=== PATIENT | female | born 1980 | race Hispanic/Latino ===

== ENCOUNTER 2017-10-19 11:29 | Inpatient (IN) | payer MEDICAID ==
[2017-10-19] MEDS ORDERED: hydrALAZINE 25 MG TAB ONE (11:52)
[2017-10-19] MEDS ORDERED: Magnesium Sulfate 2 GM/NS 0.9% 50 ML BAG ONE (11:52)
[2017-10-19] MEDS ORDERED: hydrALAZINE 20 MG/ML VIAL ONE ×2 (11:53→12:47)
[2017-10-19 12:01] LABS: #Basophils 0.1 thou/uL (0.0-0.2); #Eosinphils 0.1 thou/uL (0.0-0.7); #Lymphocytes 3.3 thou/uL (1.20-3.40); #Monocytes 0.9 thou/uL (0.11-0.59); #Neutrophils 10.5 thou/uL (1.40-6.50); %Eosinophils 0.9 % (0.0-10.0); %Lymphocytes 22.1 % (21.0-51.0); %Monocytes 6.2 % (0.0-10.0); %Neutrophils 69.9 % (42.0-75.0); Hemoglobin 13.3 g/dL (12.0-16.0); Mean Corpuscular Hemoglobin 28.8 pg (27.0-31.0); Mean Corpuscular Volume 84.8 fL (78.0-98.0); Mean Platelet Volume 7.2 fL (7.4-10.4); Platelet Count 299 thou/uL (130-400); RBC Distribution Width 14.3 % (11.5-14.5); Red Blood Cell (RBC) Count 4.63 mill/uL (4.20-5.40)
[2017-10-19 12:13] LABS: INR-International Normal Ratio 0.8; PTT 30.7 SEC (22.9-36.1); Prothrombin Time 11.5 SEC (12.0-14.7)
[2017-10-19 12:19] LABS: ALT (SGPT) 11 U/L (8-55); AST (SGOT) 15 U/L (5-34); Albumin 3.4 g/dL (3.5-5.0); Alkaline Phosphatase 117 U/L (40-150); Anion Gap 13 mmol/L (10-20); BUN (Urea Nitrogen) 9 mg/dL (7.0-18.7); Bilirubin, Total 0.4 mg/dL (0.2-1.2); Calc. Creatinine Clearance 0 mL/min (70-130); Calcium 9.5 mg/dL (7.8-10.44); Carbon Dioxide 21 mmol/L (22-29); Chloride 107 mmol/L (98-107); Estimated GFR-MDRD Greater than 90; Glucose 73 mg/dL (70-105); Magnesium 1.7 mg/dL (1.6-2.6); Protein, Total 7.4 g/dL (6.0-8.3); Sodium 137 mmol/L (136-145)
[2017-10-19] MEDS ORDERED: Magnesium Sulfate 20 gm/500 ml 20 GM/500 ML BAG ONE (12:55)
[2017-10-19] MEDS ORDERED: Ondansetron HCl/PF 4 MG/2 ML Vial IVP PRN (13:09)
[2017-10-19] MEDS ORDERED: NIFEdipine 10 MG CAP ONE (13:09)
[2017-10-19] MEDS ORDERED: Labetalol HCl 100 MG/20 ML VIAL SLOW IVP PRN (13:18)
[2017-10-19] MEDS ORDERED: hydrALAZINE 20 MG/ML VIAL SLOW IVP SCH ×2 (13:30→16:45)
[2017-10-19] MEDS ORDERED: NIFEdipine XL 30 MG TAB PO SCH (13:30)
[2017-10-19] MEDS ORDERED: Magnesium Sulfate 20 gm/500 ml 20 GM/500 ML BAG IVPB SCH (13:30)
[2017-10-19 13:40] VITALS: BMI 38.2
[2017-10-19 14:17] LABS: Amphetamine Not Detected (NotDetected); Barbiturates Screen Not Detected (NotDetected); Benzodiazepine Screen Not Detected (NotDetected); Cocaine Metabolite Screen Not Detected (NotDetected); Medtox Control Line Valid? VALID (VALID); Medtox Reader # READER 4; Methadone Not Detected (NotDetected); Methamphetamine Not Detected (NotDetected); Opiate Screen Not Detected (NotDetected); Oxycodone Screen Not Detected (NotDetected); Phencyclidine (PCP) Not Detected (NotDetected); THC/Cannabinoid Screen Not Detected (NotDetected); Tricyclic Screen Not Detected (NotDetected)
[2017-10-19 14:24] LABS: HBSAg Index 0.19 S/CO (0-0.99); Hep B Surf Ag Non-Reactive S/CO (NonReactive)
[2017-10-19 14:28] LABS: Syphilis Antibody Index 10.78 S/CO (<1.00 Non-Reactive)
--- NOTE | 2017-10-19 14:47 | ULT ---
OBSTETRICAL ULTRASOUND: DATE: 10/19/17. HISTORY: A 36-year-old female undergoing evaluation for size and dates. TECHNIQUE: Multiplanar, baker scale, sonographic imaging of the gravid uterus obtained. FINDINGS: The cervix is partially obscured by shadowing from head. Cervical length is estimated in the 3 cm range, but this may not be fully accurate secondary to technical limitations. Single intrauterin e gestation demonstrates a cephalic presentation and a heart rate of 150 b.p.m. Placenta is lo cated posteriorly with no evidence for previa or abruption. Amniotic fluid index is 18.6 cm. Intracranial anatomy could not be assessed secondary to head location. nose and lips appear unremarkable. The stomach and bladder appear unremarkable. Region of kidneys unremarkable. Evaluation of the spine and 4-chamber heart view subopti mal secondary to body habitus. Three-vessel cord noted. Umbilical cord insertion sit appears normal . BIOMETRY: BPD 6.3 cm, 25 weeks 4 days HC 23.5 cm, 25 weeks 4 days AC 20.5 cm, 25 weeks 1 day FL 4.3 cm, 24 weeks 2 days Average age based on ultrasound is 25 weeks 1 day with an estimated date of delivery on 01/31/18. Est imated weight is 741 gm +/- 110 gm (1 pound 10 ounces +/- 4 ounces). Of note, this is differen t than the patient's clinical age of 26 weeks 6 days. This suggests an estimated weight of 1 p ercentile, but that may be secondary to inaccurate dates. IMPRESSION: Intrauterine gestation as described above. anatomy could not be completely assessed secondary to position and maternal body habitus. Please see above discussion regarding estimated w eight and gestational age. POS: [facility]
[2017-10-19 15:59] LABS: Creatinine, Urine 29.28 mg/dL (47-110); Protein, Urine Random Quant Less than 10 mg/dL
[2017-10-19 18:25] LABS: Syphilis Antibody REACTIVE (Nonreactive)
[2017-10-19] MEDS ORDERED: Acetaminophen 500 MG TAB PO PRN (19:15)
[2017-10-19] MEDS ORDERED: Acetaminophen 500 MG TAB PO SCH (19:15)
[2017-10-19] MEDS ORDERED: Milk Of Magnesia 30 ML UDCUP PO PRN (19:56)
[2017-10-19] MEDS ORDERED: Magnesium Citrate 300 ML BOT PO SCH (20:15)
--- NOTE | 2017-10-19 21:06 | PRG ---
DATE OF SERVICE: 10/19/2017 EVENT NOTE Labs have been reviewed. New labs back are syphilis and RPR titer, which is reactive with a titer of 1 in 4. I spoke with the patient. The patient reports she has been treated several times now. Loi henriquez treated was 06/2016 at [facility] in [place], [place]. She is unaware of what he r titers were at that time. The number for the clinic is [phone]. Tomorrow, we will attempt to retrieve that information to determine whether she needs treatment or not.
--- NOTE | 2017-10-19 23:07 | HP ---
DATE OF ADMISSION: 10/19/2017 OB ADMISSION INPATIENT No care. HISTORY OF PRESENT ILLNESS: Patient is a 36-year-old G10, P8 female with an intrauterine o n arrival of unknown dates, who was transferred by the [facility] ER for elevated blood pr essures. Patient reports in our conversation that she has a history of chronic hypertension and has been off medications, has not been getting care and was told last January before her pregnan cy that she had high blood pressure. Patient reports that she was seen in the emergency room in [facility], where she was given some blood pressure medicine and instructed to follow up with an OB provider, but had not. Patient presented to the emergency room initially because she was having uterine contra ctions about every 3 hours and was concerned about what that might mean. She denies headache, chest pain, shortness of breath, nausea, vomiting, diarrhea, constipation, any new rashes, vaginal bleeding , leakage of fluid, urinary urgency or frequency, any back pain. PAST MEDICAL HISTORY: Again, chronic hypertension. PAST SURGICAL HISTORY: She has had six previous C-sections. SOCIAL HISTORY: Smokes daily at home. Tobacco: Denies any drug or alcohol use. ALLERGIES: No known drug allergies. MEDICATIONS: None. OB LABORATORY DATA: She has an emergency room visit dated 07/12/2017, which showed a hemoglobin of 1 1.9, hematocrit 36.4, and platelets of 326,000 at that time with negative protein in her urine. REVIEW OF SYSTEMS: Per HPI. PHYSICAL EXAMINATION: VITAL SIGNS: On arrival, patient had blood pressures in the 180s and 200s after being given 10 mg of hydralazine and loaded with 4-gram bolus of magnesium at the outside ER physicians' location. After another 10 mg of hydralazine, blood pressures have come down into the mild range. Respiratory rate has been 18-20, heart rate in the 80s, temperature 98.5. GENERAL: She appears to be in no acute distress. She is alert and oriented, cooperative, and pleasa nt to interact with. HEAD: Normocephalic, atraumatic. LUNGS: Clear to auscultation bilaterally. HEART: Regular rate and rhythm. ABDOMEN: Soft and gravid. She has a fundal height of 30 cm, nontender. EXTREMITIES: Nontender, nonedematous. GENITOURINARY: Has been deferred. heart tracing shows a fetus in the 130s with moderate long- term variability. No contractions seen on the monitor. LABORATORY DATA: Lab work shows a white count of 15, hemoglobin 13.3, hematocrit 39.2, platelets of 299,000. LFTs: AST of 15, ALT 11, LDH 186. Urine protein less than 10. Creatinine at 29 making ra shabbir at least less than 0.3. Urine drug screen is negative. Hepatitis B surface antigen nonreactive. Blood type is A positive, antibody screen is negative. She has a syphilis and RPR titer pending. Of note, patient was treated for syphilis back in June. ASSESSMENT AND PLAN: Patient is a 36-year-old female G10, P8 with an intrauterine about 26 weeks' gestation, who presented for very infrequent sporadic abdominal pains. During her stay, iesha ent was noted to have severe range blood pressures likely secondary to exacerbation of chronic hypert ension. None of her workup suggestive of preeclampsia at this time. Patient was initially bolused w ith magnesium and placed on magnesium until all of her labs and we were able to be ordered, reviewed, and assessed probably taking off her magnesium now. She has had 2 doses of hydralazine 10 mg and wa s placed on 30 mg of Procardia-XL, hopefully to help long-term control. Patient will likely need add itional IV medications until her blood pressure is under control with p.o. regimen. Patient just rec ently moved to [place] and will attempt to get her seen at the [facility] there with Dr. Ambrose and Renny. Of note, the records that were able to be obtained from the [facility] shows an int rauterine at 11 weeks and 6 days with a due date of 01/25, so that day is close to her orig inal due date based on her period at 01/19, so we will finalize her due date of 01/19 making her 26 we eks and 6 days today.
--- NOTE | 2017-10-20 07:39 | PRG ---
DATE OF SERVICE: 10/20/2017 HISTORY OF PRESENT ILLNESS: Ms. Hill is on hospital day 2, admitted for chronic hypertension, exa cerbation of blood pressure with an intrauterine at 25 weeks and no care. The pat ient after getting her blood pressures under control with IV hydralazine through the day yesterday e patient was placed on Procardia 30 mg p.o. and sent to the floor for blood pressure monitoring. He r blood pressures have remained in the normal range, primarily in the 130s 140s VITAL SIGNS: Most recent blood pressure while sleeping was 114/57, temperature 98.5, pulse of 88, re spiratory rate of 20. GENERAL: The patient reports she feels much better today. Denies headache and is tolerating p.o. an d voiding. ASSESSMENT AND PLAN: The patient will be observed through the day for medication adjustments as need ed. If blood pressures remain in the mild range she may be able to be discharged this evening or kamryn orr morning. We have attempted to make contact with Dr. Lawson's office and I have encouraged that she follow up with them for outpatient management.
[2017-10-20] MEDS ORDERED: NIFEdipine XL 30 MG TAB PO SCH (09:00)
[2017-10-20 11:47] VITALS: BP 136/67; TEMP 98.1
--- NOTE | 2017-10-20 13:08 | PDOC.EVN ---
Event Note - Event Note Event Note: 10/20/2017, [facility] Dx: 26-27 weeks, chronic hypertension, treated syphilis S: no new complaints. O: Bp is well-controlled (120s/70s), afebrile. CMP, CBC normal on admit 24 hour urine just completed physical exam: no vaginal bleeding, no leakage of fluid A: 26 weeks and 6 days here for BP control. now on procardia 30 mg xl q day. Doing well. P: 1) await 24 hour urine. spot check yesterday was negative. 2) history of treated syphilis with low-level seropositive at 1:4 3) no evidence of labor
[2017-10-20 13:10] LABS: Collection Duration 24 hrs
[2017-10-20 13:11] LABS: Urine Total Volume 1350 mL (600-1600)
--- NOTE | 2017-10-20 13:24 | PDOC.EVN ---
Event Note - Event Note Event Note: Discharge Note Admit: 10/19/17 Discharge: 10/20/17 Principle DX: CHTN at 26 weeks Secondary DX: Grand multipara Prior CS X3 Discharge meds: Procardia 30mg XL po QD 24 hour urine collected...results pending F/U: Dr kaur for results and BP check DISCHARGE SUMMARY COMPLETED IN FILE
[2017-10-20 13:51] LABS: Protein, Urine Less than 10 mg/dL (1-14)
== END 2017-10-20 13:38 | disposition home or self-care (01) | DRG 781 ==
LOC: SCSER 11:29 → L&D 12:38 → 3SW 21:08
PROVIDERS: ADMIT Obstetrics & Gynecology; ATTEND Obstetrics & Gynecology
DX: O10.012 Pre-existing essential hypertension complicating pregnancy, second trimester (principal); Z3A.25 25 weeks gestation of pregnancy
CPT/HCPCS: 51702; 76805; 80053; 80306; 82570; 83615; 83735; 84156; 85025; 85610; 85730; 86593; 86762; 86780; 86850; 86900; 86901; 87340; 96365; 96375; J0360; J3475

== ENCOUNTER 2017-11-10 12:11 | Inpatient (IN) | payer MEDICAID ==
[2017-11-10 12:58] VITALS: BMI 40.2
[2017-11-10] MEDS ORDERED: Promethazine HCl 25 MG/ML VIAL IM PRN (13:14)
[2017-11-10] MEDS ORDERED: Zolpidem Tartrate 5 MG TAB PO PRN (13:14)
[2017-11-10] MEDS ORDERED: Calcium Gluc 4.6 MEQ/10 ML (100 MG/ML) SLOW IVP PRN (13:29)
[2017-11-10] MEDS ORDERED: Magnesium Sulfate 20 GM/WATER 500 ML BAG IVPB SCH (13:30)
--- NOTE | 2017-11-10 13:38 | PDOC.LDHP ---
Labor and Delivery H&P Chief complaint: other HPI: 37 yo LAF presents c/o cramping, denies bleeding or LOF, CARRERO, visual changes or RUQ pain. Current gestational age (weeks): 30 Due date: 01/19/18 Dating criteria: last menstrual period, first trimester ultrasound Grav: 10 Para: 8 OB History Details: PNC x 1 visit in [place]. Seen here with elevated BP last month, stabilized and sent home on po Procardia. Has a h/o multiple C/S. Current complications: hypertension Past Medical History: h/o HTN Current medications: pre-lo vitamins, other (Procardia 30 mg QD.) Previous surgical history: other (h/o multiple C/S, reports x 6.) Allergies/Adverse Reactions: Allergies Allergy/AdvReac Type Severity Reaction Status Date / Time No Known Drug Allergies Allergy Verified 11/10/17 12:49 Social history: tobacco use - Physical Exam Abnormal vital signs: BP on admit= 170/100 General: NAD Lungs: nonlabored breathing Abdomen: gravid Extremeties: trace edema FHT: variability present Dudley contractions every: no significant UCs seen. - OB Labs Blood type: A RH: positive Antibody Screen: negative GBS: unknown Rubella: immune - Assessment 30 week IUP with limited PNC H/o 6 prev. C/S Chronic HTN r/o superimposed PIH - Plan Plan: admit to L&D (Start MgSO4 and watch BP carefully BP control as needed)
[2017-11-10] MEDS: Lactated Ringer's 1,000 ML IV SCH ×2 (13:44→22:15)
[2017-11-10] MEDS: Labetalol HCl 100 MG/20 ML VIAL ONE ×3 (13:56→18:18)
[2017-11-10 14:00] LABS: Bilirubin Negative (Negative); Blood, Urine Negative (Negative); Clarity CLEAR (Clear); Glucose, Urine (Dipstick) Negative (Negative); Leukocyte Moderate (Negative); Nitrite Negative (Negative); Protein, Urine (Dipstick) 30 mg/dL (Neg-Trace); Specific Gravity, Urine 1.025 (1.002-1.036)
[2017-11-10 14:03] LABS: Amphetamine Not Detected (NotDetected); Barbiturates Screen Not Detected (NotDetected); Benzodiazepine Screen Not Detected (NotDetected); Cocaine Metabolite Screen Not Detected (NotDetected); Medtox Control Line Valid? VALID (VALID); Medtox Reader # READER 1; Methadone Not Detected (NotDetected); Methamphetamine Not Detected (NotDetected); Opiate Screen Not Detected (NotDetected); Oxycodone Screen Not Detected (NotDetected); Phencyclidine (PCP) Not Detected (NotDetected); THC/Cannabinoid Screen Not Detected (NotDetected); Tricyclic Screen Not Detected (NotDetected)
[2017-11-10 14:05] LABS: Bacteria/HPF None Seen HPF (None Seen); Hyaline Casts/LPF 4-6 HYALINE CAST LPF (0-3 Hyaline); Pathc Cast-AUWi Flag 1.01 (0-2.49); RBC/HPF 0-3 HPF (0-3)
[2017-11-10 14:05] LABS: Mean Corpuscular HGB CONC 35.4 g/dL (32.0-36.0); Mean Corpuscular Hemoglobin 31.1 pg (27.0-31.0); Mean Corpuscular Volume 87.9 fL (78.0-98.0); Mean Platelet Volume 7.3 fL (7.4-10.4); Platelet Count 242 thou/uL (130-400); RBC Distribution Width 14.1 % (11.5-14.5); Red Blood Cell (RBC) Count 4.17 mill/uL (4.20-5.40); White Blood Cell (WBC) Count 11.7 thou/uL (4.8-10.8)
[2017-11-10] MEDS: Magnesium Sulfate 20 gm/500 ml 20 GM/500 ML BAG IVPB SCH ×2 (14:06→22:15)
--- NOTE | 2017-11-10 14:09 | PDOC.EVN ---
Event Note - Event Note Event Note: Mg infusing. BP= 200/100 on back. USG shows breech infant, biometry c/w 28.5 weeks, wt= 1191 gms., ANJUM= 7.1, cervix length= 2.3. Labs pending. Labetalol IV ordered for BP control. Will begin steroids for FLM.
[2017-11-10 14:26] LABS: Transitional Epithelial NONE SEEN HPF (0-3)
[2017-11-10 14:27] LABS: Crystals/HPF None Seen HPF (Negative); Oval Fat Bodies/HPF None Seen HPF (None Seen); Renal Epithelial None Seen HPF (0-3); Trichomonas/HPF Rare HPF (None Seen)
[2017-11-10 14:32] LABS: ALT (SGPT) 8 U/L (8-55); AST (SGOT) 12 U/L (5-34); Albumin 3.5 g/dL (3.5-5.0); Alkaline Phosphatase 130 U/L (40-150); Anion Gap 11 mmol/L (10-20); BUN (Urea Nitrogen) 14 mg/dL (7.0-18.7); Bilirubin, Total 0.4 mg/dL (0.2-1.2); Calc. Creatinine Clearance 219 mL/min (70-130); Carbon Dioxide 19 mmol/L (22-29); Chloride 109 mmol/L (98-107); Estimated GFR-MDRD Greater than 90; Globulin 3.1 g/dL (2.4-3.5); Glucose 73 mg/dL (70-105); Potassium 4.4 mmol/L (3.5-5.1); Protein, Total 6.6 g/dL (6.0-8.3); Sodium 135 mmol/L (136-145)
[2017-11-10] MEDS: Betamet Acet/Betamet Na Ph 30 MG/5 ML VIAL IM SCH (14:34)
[2017-11-10 14:45] LABS: HBSAg Index 0.15 S/CO (0-0.99); HIV (1/2) Antibody/Antigen Non-Reactive (NonReactive); HIV 1/2 INDEX 0.13 S/CO (<1.00); Hep B Surf Ag Non-Reactive S/CO (NonReactive)
[2017-11-10 14:56] LABS: Syphilis Antibody Index 10.31 S/CO (<1.00 Non-Reactive)
[2017-11-10] MEDS ORDERED: Labetalol 100 MG/20 ML MDV SLOW IVP SCH (15:15)
[2017-11-10] MEDS ORDERED: NIFEdipine XL 30 MG TAB PO SCH (15:15)
--- NOTE | 2017-11-10 15:16 | PDOC.EVN ---
Event Note - Event Note Event Note: Labs return: WBC= 11.7, H/H= 13/36, plts= 242K. UA; trace protein, negative blood, lekocytes, bacteria none seen, trichamonas seen. Chem: Cr= .56, AST/ALT= 12/8. A/P; 30 week IUP, chronic HTN, no evidence of superimposed PIH at this time. Will give steroids x2, begin Flagyl PO and restart Procardia XL. Will bolus with labetalol as needed.
--- NOTE | 2017-11-10 15:43 | ULT ---
OB ULTRASOUND: COMPARISON: 10/19/17. HISTORY: Preeclampsia. TECHNIQUE: Limited imaging of a gravid uterus is performed. FINDINGS: Single intrauterine gestation with breech presentation. Limited evaluation of the cervix. BIOMETRY: BPD 6.96 cm, 28 weeks 0 days Head circumference 26.96 cm, 29 weeks 3 days Abdominal circumference 23.86 cm, 28 weeks 1 day Femur length 5.26 cm, 28 weeks 0 days Average age by sonography is 28 weeks 3 days. Estimated weight is 1,191 gm +/- 176 gm. Amniotic fluid index is 7.1 cm. There are heart tones with a rate of 132 b.p.m. Posterior placenta is noted. The current stud y does not allow for the evaluation of previa. IMPRESSION: 1. Single intrauterine gestation. There are heart tones with a rate of 132 b.p.m. 2. Breech presentation. 3. Suboptimal evaluation of the cervix. POS: [facility]
[2017-11-10] MEDS: metroNIDAZOLE 250 MG TAB PO SCH ×2 (16:18→21:14)
[2017-11-10] MEDS ORDERED: Labetalol HCl 100 MG/20 ML VIAL SLOW IVP PRN (18:32)
[2017-11-10] MEDS ORDERED: Labetalol HCl 100 MG/20 ML VIAL SLOW IVP SCH (18:45)
[2017-11-10 21:53] LABS: Syphilis Antibody REACTIVE (Nonreactive)
[2017-11-11] MEDS: Acetaminophen 500 MG TAB PO PRN (01:01)
[2017-11-11] MEDS ORDERED: NIFEdipine XL 60 MG TAB PO SCH (06:00)
[2017-11-11] MEDS: Lactated Ringer's 1,000 ML IV SCH ×3 (06:13→21:14)
--- NOTE | 2017-11-11 06:15 | PDOC.EVN ---
Event Note - Event Note Event Note: Denies CARRERO or blurry vision. BP= 143/78 now. Did receive another dose of Labetalol IV at shift change last night. Will DC Mg now and start Procardia XL 60 mg QD. 2nd dose of steroids later today. 24 hr urine for TP in progress.
[2017-11-11] MEDS: metroNIDAZOLE 250 MG TAB PO SCH ×3 (09:15→21:14)
[2017-11-11 13:45] LABS: Collection Duration 24 hrs; Urine Total Volume 2800 mL (600-1600)
[2017-11-11 14:07] LABS: Protein - 24 Hr 308 mg/24 hr (Less than 300); Protein, Urine 11 mg/dL (1-14)
[2017-11-11] MEDS: Betamet Acet/Betamet Na Ph 30 MG/5 ML VIAL IM SCH (15:30)
[2017-11-11] MEDS: Mag-Al 1200 mg/1200 mg/30 ML UDCUP PO PRN (23:34)
[2017-11-12] MEDS ORDERED: Sodium Chloride 0.9% 10 ML ONE (02:57)
[2017-11-12] MEDS: Acetaminophen 500 MG TAB PO PRN (02:58)
[2017-11-12] MEDS: Ondansetron HCl/PF 4 MG/2 ML Vial IVP PRN ×2 (02:59→22:02)
--- NOTE | 2017-11-12 07:48 | PDOC.EVN ---
Event Note - Event Note Event Note: S: Patient doing well this morning. Had heartburn last night that improved with Maalox. Denies VB, LOF, ctx, headache, vision changes, or RUQ pain. O: BPs 140-150s/70s, VSS Gen - awake, alert, NAD Abd - obese, gravid, soft NTTP A/P: 37 y/o at 30w2d with CHTN, now improved with Nifedipine XL 60mg daily. 24 hour urine with 308mg protein but unsure of baseline, as patient has not received care. Now s/p celestone x 2. Continue current management with NST BID.
[2017-11-12] MEDS: NIFEdipine XL 60 MG TAB PO SCH (09:51)
[2017-11-12] MEDS: metroNIDAZOLE 250 MG TAB PO SCH ×3 (10:19→22:00)
[2017-11-12] MEDS: Mag-Al 1200 mg/1200 mg/30 ML UDCUP PO PRN (15:42)
--- NOTE | 2017-11-13 07:23 | PRG ---
DATE OF SERVICE: 11/13/2017. SUBJECTIVE: This is hospital day #3. She is sleepy, but has no complaints this morning. She denies headache or blurry vision. OBJECTIVE: VITAL SIGNS: Last blood pressure 135/64, pulse 74, temperature 98.1, respirations 18. ABDOMEN: Soft, nontender and gravid. GENITOURINARY: There is no vaginal bleeding. ASSESSMENT AND PLAN: 1. A 30 and 3/7 week intrauterine . 2. Labile chronic hypertension, now well controlled on Procardia 60 mg XL every day. A 24-hour urin e is in progress. It will be completed later this morning. Should this be acceptable, consideration of discharge would be made.
[2017-11-13] MEDS: NIFEdipine XL 60 MG TAB PO SCH (12:11)
[2017-11-13] MEDS: metroNIDAZOLE 250 MG TAB PO SCH ×3 (12:12→23:05)
[2017-11-13 13:06] LABS: Collection Duration 24 hrs; Urine Total Volume 3975 mL (600-1600)
[2017-11-13 13:27] LABS: Protein, Urine Less than 10 mg/dL (1-14)
--- NOTE | 2017-11-14 07:07 | PRG ---
DATE OF SERVICE: 11/14/2017 TIME OF SERVICE: 0645 The patient is resting comfortably. She reports an active fetus. She denies headache. Blood pressures since yesterday have been 137 to 143 systolic and 64 to 72 diastolic. The last high blood pressure was at 1400 on the 16th at 167/81. Physical exam is unchanged with 1+ DTRs. No significant edema, active fetus and FHTs 130s to 140s. LABORATORY: 24-hour urine revealed minimal proteinuria. Of note, the patient has a RPR titer of 1:4 . Research into previous admission and previous treatment reveals that the patient has a history of appropriately treated syphilis and is presumed serofast without current infection. IMPRESSION: A 37-year-old 10, para 8 at 30 weeks gestation with limited antepartum care. Th e patient apparently has gestational hypertension/chronic hypertension, without evidence of preeclamp raul. Blood pressures are under improving control on Procardia-XL 60 mg p.o. every day. PLAN: We will continue Procardia and observe blood pressures until later today. If blood pressures remained in the improved category we will discharge the patient home. The patient has an appointment set up for followup at the Clinic and understands the importance of keeping this appointmen t and having good care. ER precautions given.
[2017-11-14] MEDS: Mag-Al 1200 mg/1200 mg/30 ML UDCUP PO PRN ×2 (12:29→20:14)
[2017-11-14] MEDS: metroNIDAZOLE 250 MG TAB PO SCH ×3 (12:30→20:19)
[2017-11-14] MEDS: NIFEdipine XL 60 MG TAB PO SCH (12:30)
[2017-11-14] MEDS: Labetalol 100 MG TAB PO SCH (20:19)
--- NOTE | 2017-11-14 20:45 | PRG ---
DATE OF SERVICE: 11/14/2017 The patient is a 37-year-old female admitted on 11/10/2017 for uncontrolled chronic hypertension vers us gestational hypertension. She most recently had a medication adjustment to 60 mg of Procardia XL daily. The patient was scheduled to go home today, hospital day 5; however, the patient has been hav ing severe range blood pressures again despite being on the new medication dose for more than 24 hour s. I have discussed these findings with Ms. Hill and also discussed the importance of getting her blood pressures under moderate control. I will be adding labetalol 200 mg twice a day to her curren t regimen to see if this will bring her pressures into the mild range. The patient has expressed und erstanding and will remain admitted.
--- NOTE | 2017-11-15 08:01 | PRG ---
DATE OF SERVICE: 11/15/2017 HISTORY OF PRESENT ILLNESS: The patient is a 37-year-old female with an intrauterine at 30 weeks who was admitted 6 days ago for exacerbation of chronic hypertension. Evaluation has been neg ative up to now for superimposed preeclampsia. The patient was most recently placed on Procardia-XL 60 mg with anticipation of discharge home yesterday; however, the patient continued to have severe ra nge blood pressures and labetalol 200 mg twice a day has been since added. Blood pressures since the n have remained in the normal to mild range. Blood pressure this morning was 142/86, temperature is 98.2, pulse is 74, respiratory rate of 20. The patient denies any headaches, any shortness of breath or other concerns. The patient appears to be in no acute distress. She is alert and oriented, cooperative and pleasant to interact with. ASSESSMENT AND PLAN: The patient is a 37-year-old female with an exacerbation of chronic hypertensio n. We have continued to adjust her medications during this hospitalization for control. The patient is now on Procardia-XL 60 mg a day and labetalol 200 mg twice a day. We will continue monitoring th rough the day. If her blood pressures continue to stay in the normal to mild range the patient can b e discharged this evening.
[2017-11-15] MEDS: Labetalol 100 MG TAB PO SCH ×2 (08:10→22:27)
[2017-11-15] MEDS: metroNIDAZOLE 250 MG TAB PO SCH ×3 (08:11→21:51)
[2017-11-15 09:05] LABS: Hemoglobin 12.7 g/dL (12.0-16.0); Mean Corpuscular HGB CONC 34.7 g/dL (32.0-36.0); Mean Corpuscular Volume 89.1 fL (78.0-98.0); Mean Platelet Volume 6.8 fL (7.4-10.4); Platelet Count 258 thou/uL (130-400); Red Blood Cell (RBC) Count 4.11 mill/uL (4.20-5.40); White Blood Cell (WBC) Count 15.6 thou/uL (4.8-10.8)
[2017-11-15 09:19] LABS: Band 4 % (5-11); Lymphocytes 32 % (21-51); MDiff Complete? YES; Monocytes 3 % (0-10); Neutrophil 61 % (42-75); PLT Morphology Comment Appears Adequate; RBC Morphology Normal
[2017-11-15 09:28] LABS: ALT (SGPT) 12 U/L (8-55); AST (SGOT) 12 U/L (5-34); Albumin 3.2 g/dL (3.5-5.0); Alkaline Phosphatase 106 U/L (40-150); Anion Gap 12 mmol/L (10-20); BUN (Urea Nitrogen) 13 mg/dL (7.0-18.7); Bilirubin, Total 0.5 mg/dL (0.2-1.2); Calc. Creatinine Clearance 215 mL/min (70-130); Calcium 8.6 mg/dL (7.8-10.44); Carbon Dioxide 21 mmol/L (22-29); Chloride 106 mmol/L (98-107); Estimated GFR-MDRD Greater than 90; Globulin 3.1 g/dL (2.4-3.5); Glucose 100 mg/dL (70-105); Potassium 3.8 mmol/L (3.5-5.1); Protein, Total 6.3 g/dL (6.0-8.3); Sodium 135 mmol/L (136-145)
--- NOTE | 2017-11-15 09:28 | PRG ---
DATE OF SERVICE: 11/15/2017 LOCATION: [address] ANTEPARTUM PROGRESS NOTE Hospital day #6 (patient admitted 11/10/2017). In brief, this patient has a full hand written progress note in the physical chart so please see that scanned copy. This dictation is secondary and ancillary. In brief, I was called at approximately 8:30 this morning for the patient's blood pressure which was 170/82. There were no signs or symptoms of labor, and the patient was without symptoms of headache, visual changes or right upper quadrant pain In brief, this is a patient with chronic hypertension who was on clonidine before and has been admitted now (originally admitted by Dr. Dill) for blood pressure medical management, control. I reviewed the medical record with Dr. Melvin this morning and with the patient at bedside. The patient has had prior x3. The patient is currently on dual medication regimen which is labetalol 200 mg p.o. b.i.d. and Procardia-XL 60 mg every day. The labetalol was started last night by Dr. Melvin at around 2100 or so. The patient also had steroids given earlier this admission and also had an ultrasound which showed no evidence of growth restriction. The baby's presentation at that time which was early on in the admission was breech. I have reviewed the patient's history and seen the patient at bedside this morning. Marci, the patient's nurse, also was in on our medical team meeting this morning with the patient. We reviewed the desire for continued in utero development if possible until at least 32 weeks. We discussed that until her blood pressures are in the moderate range, we will continue in-house observation and possible blood pressure medication adjustment. As her labetalol was just started yesterday we will see what the blood pressures are on a full 24 hours of this medication. I have ordered a stat CMP, CBC, and urine protein to creatinine ratio to see if there is any deterioration in her labs which would prompt delivery. The patient's questions were answered and all details given. Time at bedside was 20 minutes with myself and Marci, answering the patient's questions. The patient agrees with the plan and is thankful for care. LOKI
[2017-11-15 10:05] LABS: Uric Acid 4.5 mg/dL (2.6-6.0)
[2017-11-15] MEDS: NIFEdipine XL 60 MG TAB PO SCH (10:05)
--- NOTE | 2017-11-15 10:47 | PDOC.EVN ---
Event Note - Event Note Event Note: 11/15/17 Follow up: @1050 Lab check: CMP ok CBC with WBC at 15 but s/p steroids. PLTS are normal. U protein/CR ratio: 0.36 BPs better now. Ordered BPP this AM.
--- NOTE | 2017-11-15 11:55 | PDOC.EVN ---
Event Note - Event Note Event Note: @1155: Verbal BPP report: 12/06 with ANJUM 9 Normal.
--- NOTE | 2017-11-15 12:34 | ULT ---
BIOPHYSICAL PROFILE: HISTORY: induced hypertension. TECHNIQUE: Multiple longitudinal and transverse images of an intrauterine are obtained using a Multi-H ertz curvilinear transducer. Real-time, color-flow, and spectral wave-form Doppler analysis demonstr ates a viable intrauterine , with the fetus in a breech presentation. The placenta is towar d the maternal left and grade 2. Amniotic fluid index measures 9.2 cm. BIOPHYSICAL PROFILE: TONE: 2 BREATHIN MOVEMENT: 2 AMNIOTIC FLUID VOLUME: 2 COMPOSITE: 8/8 IMPRESSION: Biophysical profile measures 8/8. POS: [facility]
[2017-11-15] MEDS: Mag-Al 1200 mg/1200 mg/30 ML UDCUP PO PRN (22:29)
[2017-11-16 04:35] VITALS: TEMP 98.4
--- NOTE | 2017-11-16 07:46 | PDOC.EVN ---
Event Note - Event Note Event Note: S: Doing well this morning, no complaints. No PIH sx. +FM O: BPs normal to mild range since 0810 on 11/15 Gen -AAO, NAD Abd - gravid, obese, NTTP A/P: 37 y/o at 30w5d with 1. CHTN with superimposed preeclampsia - BPs improved on Nifedipine XL 60mg and Labetalol 200mg BID. Continue to monitor this morning with possible d/c later today if BPs stay controlled on meds. Will need to follow up outpatient early next week. 2. Recent labs wnl 3. wellbeing - BPP yesterday 12/06 4. Prior LTCS x 3 - repeat planned.
[2017-11-16] MEDS: Labetalol 100 MG TAB PO SCH (07:54)
[2017-11-16] MEDS: NIFEdipine XL 60 MG TAB PO SCH (08:51)
[2017-11-16] MEDS: metroNIDAZOLE 250 MG TAB PO SCH ×2 (11:25→15:27)
[2017-11-16 15:29] VITALS: BP 135/83
--- NOTE | 2017-11-17 00:18 | DIS ---
DATE OF ADMISSION: 11/10/2017 DATE OF DISCHARGE: 11/16/2017 ADMITTING DIAGNOSES: 1. No care. 2. Chronic hypertension, uncontrolled. 3. Obesity. 4. Prior x3. 5. Grand multiparity. 6. Intrauterine at 30 weeks. DISCHARGE DIAGNOSES: 1. No care. 2. Chronic hypertension, controlled. 3. Obesity. 4. Prior x3. 5. Grand multiparity. 6. Intrauterine at 30 weeks. PROCEDURE: Ultrasound. CONSULTATIONS: None. HOSPITAL COURSE: Patient is a 37-year-old female with an intrauterine at 30 weeks' gestati on who presented to Labor and Delivery with uncontrolled hypertension. Patient was seen approximatel y 1 month previous here in the hospital but has not established care in our community yet. During her stay, there has been some difficulty in getting her blood pressures under control, but ult imately we have increased her Procardia to 60 mg of Procardia-XL daily plus 200 mg of labetalol twice a day, that seems to be doing a much better job. A pH workup is negative during this hospitalizatio n and fetus is measuring 28 weeks and 3 days. Date of admission which was about a week off. During her hospitalization, the fetus has had 8/8 BPP and reactive NSTs. On date of discharge, the patient' s most recent blood pressure is 135/83, pulse is 74, respiratory rate of 20. In the last 24 hours, h er pressures have been in the 130s to 140s/70s. Patient denies any headaches, chest pain, shortness of breath or any other labor symptoms. Patient is being discharged to home. She has established an initial OB visit with the Clinic on Monday to whom we will be sending our labs and imaging a nd notes. Patient has been given preeclamptic precautions and she is being discharged to home with l abetalol 200 mg to be taken twice a day, Procardia 60 mg to be taken daily and Flagyl 250 mg to be ta anusha 3 times a day for bacterial vaginosis.
== END 2017-11-16 16:44 | disposition home or self-care (01) | DRG 781 ==
LOC: L&D/OP 12:11 → L&D 13:33 → 3SE 11-11 22:14
PROVIDERS: ADMIT Obstetrics & Gynecology; ATTEND Obstetrics & Gynecology
DX: O11.3 Pre-existing hypertension with pre-eclampsia, third trimester (principal); O23.593 Infection of other part of genital tract in pregnancy, third trimester; O99.213 Obesity complicating pregnancy, third trimester; E66.9 Obesity, unspecified; N76.0 Acute vaginitis; O32.1XX0 Maternal care for breech presentation, not applicable or unspecified; O09.33 Supervision of pregnancy with insufficient antenatal care, third trimester; O34.219 Maternal care for unspecified type scar from previous cesarean delivery; B96.89 Other specified bacterial agents as the cause of diseases classified elsewhere; Z3A.30 30 weeks gestation of pregnancy
CPT/HCPCS: 36415; 51701; 51702; 59025; 76805; 76819; 80053; 80306; 81001; 82570; 83615; 84156; 84550; 85025; 85027; 86593; 86780; 86850; 86900; 86901; 87340; 87389; 99285; A4216; J0702; J2405; J3475

== ENCOUNTER 2017-11-20 15:41 | Inpatient (IN) | payer MEDICAID ==
[2017-11-20 16:17] VITALS: BMI 40.8
[2017-11-20] MEDS ORDERED: Labetalol 100 MG TAB PO SCH ×4 (17:15→21:00)
--- NOTE | 2017-11-20 17:23 | PDOC.LDHP ---
Labor and Delivery H&P Chief complaint: other (high blood pressure) HPI: 37yo at 31.3 by reported 11w US from outside hospital presents to L&D for high blood pressure. Patient has a PMH of chronic HTN and was discharged from the hospital one week ago for increased blood pressure and proteinuria. She has been taking meds given to her at discharge which include Labetalol 200 mg BID and Procardia 60 mg XR daily. She reports compliance with regimen and home pressures around 135/70 since . Today went she went to her doctors appointment her BP measured with systolics in 170s. Pt. denies CARRERO, SOB, abdominal pain, vision changes. Endorses mild ,intermittent lower extremity edema throughout her which is not any worse today. Also endorses movement but denies fluid loss, VB. Current gestational age (weeks): 31 (31.3) Dating criteria: last menstrual period, other (reported 11w U/S from [facility] in [facility] Grav: 10 Para: 8 ([id number]) OB History Details: 1. Uncontrolled chronic hypertension with two known hospital admissions for blood pressure control 2. History of Csection x3 3. History of syphilis, s/p treatment 4. Grand multiparity 5. AMA Current complications: hypertension, other (Uncontrolled chronic hypertension with two known hospital admissions for blood pressure control) Past Medical History: 1. Chronic Hypertension 2. AMA 3. Tobacco use (?) 4. Proteinuria 5. Obesity 6. Prior C section x3 7. Grand multiparity 8. IUP Current medications: other (labetalol 200mg BID; procardia 60mg XR qdaily) Previous surgical history: low tranverse CS, other (History of c-sections x3, unable to verify type of uterine incision) Social history: none (denies tob/etoh/drug) - Physical Exam Abnormal vital signs: 168/96 General: NAD, resting Heart: RRR Lungs: CTAB Abdomen: NTTP Extremeties: no edema FHT: category 1 - OB Labs Blood type: unknown RH: unknown HIV: negative RPR: negative HEPSAg: negative 1 hour GCT: unknown GBS: unknown Rubella: immune - Assessment 37 yo with here with preeclampsia superimposed on chronic hypertension with severe range blood pressures. Delivery not imminent at this time. Plan to monitor BPs [id number] and give Labetalol 40mg IV if SBPs >160 or DBP >110. Will resume home dose medication. - Plan -: 1. Uncontrolled chronic hypertension with two known hospital admissions for blood pressure control -Currently asymptomatic -Recorded history of proteinuria during last hospital admission (24 urine of 308 ) -Reassuring FHT: 130/mod/+accels -Umbilical artery Doppler: pending -BPP 12/06 at this time -Gave labetalol 40mg IV x1, will continuously check q15min. If blood pressure remains in severe range or becomes symptomatic despite IV medications, will consider starting Mg at that point -Will resume home medication regimen -Rechecked all preE labs (CMP, CBC, repeat 24 hour urine protein & creatinine, uric acid, LDH,) 2. History of Csection x3 -If decision made is to proceed with delivery, then we will plan for Csection 3. History of syphilis -S/P PCN x3 (2010) -Free Treponema ABs pending 4. Grand multiparity -Anticipate for PPH -Type & screen ordered 5. AMA -No quad screen during 6. Chronic hypertension -Patient on labetalol 200mg BID, procardia 60mg XR qdaily -See plan above for #1 <Scarlett Reyez - Last Filed: 11/20/17 19:29> <Lena Nolan - Last Filed: 11/27/17 15:53> Allergies/Adverse Reactions: Allergies Allergy/AdvReac Type Severity Reaction Status Date / Time No Known Drug Allergies Allergy Verified 11/10/17 12:49 Attending Addendum - Attending Addendum Date/Time: 11/21/17 0358 I personally evaluated the patient and discussed the management with Dr. Reyez and Dr. Stein I agree with the History, Examination, Assessment and Plan documented above with any addition or exceptions noted below. 37 yo female at 31.3 wks presents for evaluation of elevated BP. Noted to have elevated BP in severe range x 2 in clinic. Denies symptoms. Reports taking BP meds as directed without complications. Good FM. Patient recently admitted for superimposed preeclampsia without severe features (new onset proteinuria and BP requiring medication adjustment) and given BMZ for FLM. Will continue to monitor. Has had 2 transient severe range blood pressures with repeats mild range. Will give night time dose of meds. Labs ordered. Continue to monitor fetus, currently reassuring. Mel <Lena Nolan - Last Filed: 11/27/17 15:53>
[2017-11-20 17:25] LABS: Band 3 % (5-11); Eosinophils 2 % (0-10); Hemoglobin 12.1 g/dL (12.0-16.0); Lymphocytes 19 % (21-51); MDiff Complete? YES; Mean Corpuscular HGB CONC 35.5 g/dL (32.0-36.0); Mean Corpuscular Hemoglobin 31.5 pg (27.0-31.0); Mean Platelet Volume 6.6 fL (7.4-10.4); Monocytes 5 % (0-10); Neutrophil 71 % (42-75); PLT Morphology Comment Appears Adequate; Platelet Count 221 thou/uL (130-400); RBC Distribution Width 14.3 % (11.5-14.5); Red Blood Cell (RBC) Count 3.84 mill/uL (4.20-5.40); White Blood Cell (WBC) Count 11.7 thou/uL (4.8-10.8)
[2017-11-20] MEDS ORDERED: Labetalol HCl 100 MG/20 ML VIAL SLOW IVP SCH ×2 (17:30→19:45)
[2017-11-20 17:32] LABS: ALT (SGPT) 10 U/L (8-55); AST (SGOT) 12 U/L (5-34); Albumin 3.2 g/dL (3.5-5.0); Alkaline Phosphatase 119 U/L (40-150); Anion Gap 13 mmol/L (10-20); BUN (Urea Nitrogen) 17 mg/dL (7.0-18.7); Bilirubin, Total 0.3 mg/dL (0.2-1.2); Calc. Creatinine Clearance 194 mL/min (70-130); Calcium 8.7 mg/dL (7.8-10.44); Carbon Dioxide 17 mmol/L (22-29); Chloride 111 mmol/L (98-107); Estimated GFR-MDRD Greater than 90; Globulin 3.4 g/dL (2.4-3.5); Glucose 123 mg/dL (70-105); LDH 216 U/L (125-220); Potassium 3.9 mmol/L (3.5-5.1); Protein, Total 6.6 g/dL (6.0-8.3); Sodium 137 mmol/L (136-145)
[2017-11-20 18:09] LABS: Amphetamine Not Detected (NotDetected); Barbiturates Screen Not Detected (NotDetected); Benzodiazepine Screen Not Detected (NotDetected); Cocaine Metabolite Screen Not Detected (NotDetected); Medtox Control Line Valid? VALID (VALID); Medtox Reader # READER 4; Methadone Not Detected (NotDetected); Methamphetamine Not Detected (NotDetected); Opiate Screen Not Detected (NotDetected); Oxycodone Screen Not Detected (NotDetected); Phencyclidine (PCP) Not Detected (NotDetected); THC/Cannabinoid Screen Not Detected (NotDetected); Tricyclic Screen Not Detected (NotDetected)
[2017-11-20] MEDS ORDERED: Promethazine HCl 25 MG/ML VIAL IM PRN (18:32)
[2017-11-20] MEDS ORDERED: Docusate 100 MG CAP PO PRN (18:32)
[2017-11-20] MEDS ORDERED: Ondansetron HCl/PF 4 MG/2 ML Vial IVP PRN (18:32)
[2017-11-20] MEDS ORDERED: Acetaminophen 500 MG TAB PO PRN (18:32)
[2017-11-20] MEDS ORDERED: Lactated Ringer's 250 ML IV SCH (19:00)
--- NOTE | 2017-11-20 19:27 | PDOC.EVN ---
Event Note - Event Note Event Note: Pt continues to have elevated pressures, most recent reading 161/79. New diagnosis of chronic hypertension in with superimposed pre-ecclampsia without severe features. Labetolol 40 mg has been given. She does not have any symptoms at this time. Continuous monitoring and blood pressure checks Q2hr. If pressures climb into severe range will begin mag treatment per protocols. <Garcia Lin - Last Filed: 11/20/17 19:34> - Event Note Event Note: Severe range pressure at this time. Will treat and review pass BPs while on monitoring. Labs pending. Remains asymptomatic. At this time superimposed preeclampsia without severe however suspect labs will likely be abnormal and will likely require mag sulfate ppx. If remains stable will continue expectant management but will continue to monitor extremely closely. Mel <Lena Nolan - Last Filed: 11/27/17 11:26>
--- NOTE | 2017-11-20 20:21 | ULT ---
NONSTRESS BIOPHYSICAL PROFILE: HISTORY: Concern for superimposed preeclampsia. COMPARISON: 11/15/2017 TECHNIQUE: A nonstress biophysical profile was performed. Cord Doppler was also performed. FINDINGS: The cervix is obscured due to shadowing. Vertex presentation. heart tones with a rate of 140 beats per minute. Amniotic fluid index is 9.3 cm. Posterior placenta. Nonstress biophysical profile: tone: 2 breathin movement: 2 Amniotic fluid: 2 Total score: 8/8 Cord Doppler at cord insertion: Peak systolic velocity 89.6 cm per second. End-diastolic velocity 23.8 cm per second. Systolic to diastolic ratio 3.76. Mid umbilical artery peak systolic velocity 62.7 cm per second. End-diastolic velocity 19.3 cm per second. Systolic to diastolic ratio 3.23. At the placenta, the peak systolic velocity is 32.8 cm per second, and the end-diastolic velocity is 17.4 cm per second. Systolic to diastolic ratio is 1.89. IMPRESSION: 1. Nonstress biophysical profile with a total score of 8/8. 2. Umbilical Doppler as above. POS: [facility]
--- NOTE | 2017-11-20 20:48 | PDOC.EVN ---
Event Note - Event Note Event Note: Pt is now recording blood pressures in 140s and 150s, most recent reading 144/ 74. New diagnosis of chronic hypertension in with superimposed pre- ecclampsia without severe features. Labetolol 40 mg IV and 200 mg PO were given 193. She has had transient severe range pressures that resolved without intervention. She does not have any symptoms at this time. Continuous monitoring and recheck blood pressure in one hour. If pressures continue to remain in an acceptable range will discontinue continuous monitoring and reduce frequency of blood pressure checks. <Garcia Lin - Last Filed: 11/20/17 20:44> - Event Note Event Note: Pressures now mild range. Labs still pending. Remains asymptomatic. No indication for mag sulfate at this time. However, will continue close monitoring. Mel <Lena Nolan - Last Filed: 11/27/17 11:27>
[2017-11-20] MEDS ORDERED: Calcium Gluc 4.6 MEQ/10 ML (100 MG/ML) SLOW IVP PRN (21:02)
[2017-11-20] MEDS: Lactated Ringer's 1,000 ML IV SCH (21:08)
--- NOTE | 2017-11-20 21:11 | PDOC.EVN ---
Event Note - Event Note Event Note: Pt has developed pressures in the severe range, last readin/102. She also complains of a headache. Will begin treatment with magnesium sulfate IV. Mag checks Q2hr, next check 2310. continuous monitoring. repeat CBC CMP at 0001. <Garcia Lin - Last Filed: 11/20/17 21:07> - Event Note Event Note: Labs positive for mildly elevated uric acid level of 5.6. Protein/Creatine ratio > 0.3. Now with several severe range pressures and new onset severe headache with visual changes. Mag started. Will treat BP with oral and IV medications. Tylenol and Benadryl for pain control. Monitor closely. No indication for delivery at this time. Patient is s/p BMZ for FLM less than 14 days ago. Will trend labs in order to determine if expectant management is correct course of action. Reassuring status. KrishanMD <Lena Nolan - Last Filed: 11/27/17 11:31>
[2017-11-20] MEDS ORDERED: hydrALAZINE 20 MG/ML VIAL SLOW IVP SCH (21:15)
[2017-11-20] MEDS ORDERED: diphenhydrAMINE 25 MG CAP PO SCH (21:15)
[2017-11-20] MEDS ORDERED: Acetaminophen 500 MG TAB PO SCH (21:15)
[2017-11-20] MEDS ORDERED: Magnesium Sulfate 20 GM/WATER 500 ML BAG IVPB SCH (21:15)
--- NOTE | 2017-11-20 22:36 | PDOC.OBMPN ---
[facility] LD[facility] PN: Subj - Interval History Hospital Day: 1 Chief Complaint: elevated blood pressure Indentification: 37 year old at 31.3 by 11 week sono presents for eval elevated bp [facility] PN: Obj - Maternal Vital signs: BP: [] HR: [] RR: [] Tmax: [] Pox: []% on [] Wt: [] - Heart Tones Baseline: 130 (reactive) [facility] PN: Exam - Physical Exam General: NAD Heart: RRR, normal S1/S2, no edema General: CTAB, no respiratory distress Neurological: DTR +2 [facility] PN: Data - Labs Lab results: Laboratory Results - last 24 hr 11/20/17 11/20/17 11/20/17 16:57 16:57 16:57 WBC 11.7 H RBC 3.84 L Hgb 12.1 Hct 34.2 L MCV 89.0 MCH 31.5 H MCHC 35.5 RDW 14.3 Plt Count 221 MPV 6.6 L Neutrophils % (Manual) 71 Band Neuts % (Manual) 3 L Lymphocytes % (Manual) 19 L Monocytes % (Manual) 5 Eosinophils % (Manual) 2 Plt Morphology Comment Appears Adequate Sodium 137 Potassium 3.9 Chloride 111 H Carbon Dioxide 17 L Anion Gap 13 BUN 17 Creatinine 0.64 Estimated GFR (MDRD) Greater than 90 Glucose 123 H Uric Acid Calcium 8.7 Total Bilirubin 0.3 AST 12 ALT 10 Alkaline Phosphatase 119 Lactate Dehydrogenase 216 Serum Total Protein 6.6 Albumin 3.2 L Globulin 3.4 Albumin/Globulin Ratio 0.9 L Urine Protein Urine Creatinine Urine Opiates Screen Ur Oxycodone Screen Urine Methadone Screen Ur Propoxyphene Screen Ur Barbiturates Screen Ur Tricyclics Screen Ur Phencyclidine Scrn Ur Amphetamines Screen U Methamphetamines Scrn U Benzodiazepines Scrn U Cocaine Metab Screen U Cannabinoids Screen Drug Screen Comment Blood Type A POSITIVE Antibody Screen NEGATIVE 11/20/17 11/20/17 11/20/17 16:57 17:21 17:21 WBC RBC Hgb Hct MCV MCH MCHC RDW Plt Count MPV Neutrophils % (Manual) Band Neuts % (Manual) Lymphocytes % (Manual) Monocytes % (Manual) Eosinophils % (Manual) Plt Morphology Comment Sodium Potassium Chloride Carbon Dioxide Anion Gap BUN Creatinine Estimated GFR (MDRD) Glucose Uric Acid 5.6 Calcium Total Bilirubin AST ALT Alkaline Phosphatase Lactate Dehydrogenase Serum Total Protein Albumin Globulin Albumin/Globulin Ratio Urine Protein 100 H Urine Creatinine 206.40 H Urine Opiates Screen Ur Oxycodone Screen Urine Methadone Screen Ur Propoxyphene Screen Ur Barbiturates Screen Ur Tricyclics Screen Ur Phencyclidine Scrn Ur Amphetamines Screen U Methamphetamines Scrn U Benzodiazepines Scrn U Cocaine Metab Screen U Cannabinoids Screen Drug Screen Comment Blood Type Antibody Screen 11/20/17 17:21 WBC RBC Hgb Hct MCV MCH MCHC RDW Plt Count MPV Neutrophils % (Manual) Band Neuts % (Manual) Lymphocytes % (Manual) Monocytes % (Manual) Eosinophils % (Manual) Plt Morphology Comment Sodium Potassium Chloride Carbon Dioxide Anion Gap BUN Creatinine Estimated GFR (MDRD) Glucose Uric Acid Calcium Total Bilirubin AST ALT Alkaline Phosphatase Lactate Dehydrogenase Serum Total Protein Albumin Globulin Albumin/Globulin Ratio Urine Protein Urine Creatinine Urine Opiates Screen Not Detected Ur Oxycodone Screen Not Detected Urine Methadone Screen Not Detected Ur Propoxyphene Screen Not Detected Ur Barbiturates Screen Not Detected Ur Tricyclics Screen Not Detected Ur Phencyclidine Scrn Not Detected Ur Amphetamines Screen Not Detected U Methamphetamines Scrn Not Detected U Benzodiazepines Scrn Not Detected U Cocaine Metab Screen Not Detected U Cannabinoids Screen Not Detected Drug Screen Comment Blood Type Antibody Screen [facility] PN:A/P - Problem List (1) Pre-eclampsia superimposed on chronic hypertension Status: Acute Code(s): O11.9 - PRE-EXISTING HYPERTENSION WITH PRE-ECLAMPSIA, UNSP TRIMESTER Comment: with severe features Assessment and Plan: severe range pressures x2 with severe features and new onset headache. given tylenol and benydryl. s/p loading dose mag. headache is better now after administering hydralizine, pressures in the 140s and 150s most recent readin/74. Discussion: Date/Time: 11/20/172233 This H&P was discussed with [] and [] who agree with the above documentation and plan. Attending Addendum - Attending Addendum Date/Time: 11/21/17 9114 I personally evaluated the patient and discussed the management with Dr. Lin I agree with the History, Examination, Assessment and Plan documented above with any addition or exceptions noted below. 37 yo female at 31.3 wks now with superimposed preeclampsia with severe features. Continue mag sulfate ppx. Trend labs in AM. Treat headache. Continue to monitor status. Treat elevated BP with oral and IV medications. At this time will continue expectant management but if needed due to severity of disease will proceed with RLTCS. Patient s/p BMZ course for FLM < 14 days ago. Mel
[2017-11-21 00:59] LABS: ALT (SGPT) 7 U/L (8-55); AST (SGOT) 9 U/L (5-34); Alkaline Phosphatase 115 U/L (40-150); Anion Gap 13 mmol/L (10-20); BUN (Urea Nitrogen) 13 mg/dL (7.0-18.7); Bilirubin, Total 0.3 mg/dL (0.2-1.2); Calc. Creatinine Clearance 200 mL/min (70-130); Calcium 8.5 mg/dL (7.8-10.44); Carbon Dioxide 15 mmol/L (22-29); Chloride 112 mmol/L (98-107); Estimated GFR-MDRD Greater than 90; Globulin 3.2 g/dL (2.4-3.5); Glucose 130 mg/dL (70-105); Potassium 4.2 mmol/L (3.5-5.1); Protein, Total 6.2 g/dL (6.0-8.3); Sodium 136 mmol/L (136-145)
[2017-11-21 01:14] LABS: Hemoglobin 12.2 g/dL (12.0-16.0); Mean Corpuscular HGB CONC 34.4 g/dL (32.0-36.0); Mean Corpuscular Hemoglobin 31.1 pg (27.0-31.0); Mean Corpuscular Volume 90.6 fL (78.0-98.0); Mean Platelet Volume 6.8 fL (7.4-10.4); Platelet Count 227 thou/uL (130-400); RBC Distribution Width 14.5 % (11.5-14.5); Red Blood Cell (RBC) Count 3.93 mill/uL (4.20-5.40); White Blood Cell (WBC) Count 12.7 thou/uL (4.8-10.8)
--- NOTE | 2017-11-21 01:34 | PDOC.OBMPN ---
[facility] PN: Subj - Interval History Hospital Day: 2 Chief Complaint: Elevated BP Indentification: 37 year old at 31.3 by 11 week sono presents for eval elevated bp [facility] PN: Obj - Maternal Vital signs: BP: [143/68] HR: [] RR: [] Tmax: [] Pox: []% on [] Wt: [] - Heart Tones Baseline: 130 (reactive ) [facility] PN: Exam - Physical Exam General: NAD Neurological: DTR +2 [facility] PN: Data - Labs Lab results: Laboratory Results - last 24 hr 11/20/17 11/20/17 11/20/17 16:57 16:57 16:57 WBC 11.7 H RBC 3.84 L Hgb 12.1 Hct 34.2 L MCV 89.0 MCH 31.5 H MCHC 35.5 RDW 14.3 Plt Count 221 MPV 6.6 L Neutrophils % (Manual) 71 Band Neuts % (Manual) 3 L Lymphocytes % (Manual) 19 L Monocytes % (Manual) 5 Eosinophils % (Manual) 2 Plt Morphology Comment Appears Adequate Sodium 137 Potassium 3.9 Chloride 111 H Carbon Dioxide 17 L Anion Gap 13 BUN 17 Creatinine 0.64 Estimated GFR (MDRD) Greater than 90 Glucose 123 H Uric Acid Calcium 8.7 Total Bilirubin 0.3 AST 12 ALT 10 Alkaline Phosphatase 119 Lactate Dehydrogenase 216 Serum Total Protein 6.6 Albumin 3.2 L Globulin 3.4 Albumin/Globulin Ratio 0.9 L Urine Protein Urine Creatinine Urine Opiates Screen Ur Oxycodone Screen Urine Methadone Screen Ur Propoxyphene Screen Ur Barbiturates Screen Ur Tricyclics Screen Ur Phencyclidine Scrn Ur Amphetamines Screen U Methamphetamines Scrn U Benzodiazepines Scrn U Cocaine Metab Screen U Cannabinoids Screen Drug Screen Comment Blood Type A POSITIVE Antibody Screen NEGATIVE 11/20/17 11/20/17 11/20/17 16:57 17:21 17:21 WBC RBC Hgb Hct MCV MCH MCHC RDW Plt Count MPV Neutrophils % (Manual) Band Neuts % (Manual) Lymphocytes % (Manual) Monocytes % (Manual) Eosinophils % (Manual) Plt Morphology Comment Sodium Potassium Chloride Carbon Dioxide Anion Gap BUN Creatinine Estimated GFR (MDRD) Glucose Uric Acid 5.6 Calcium Total Bilirubin AST ALT Alkaline Phosphatase Lactate Dehydrogenase Serum Total Protein Albumin Globulin Albumin/Globulin Ratio Urine Protein 100 H Urine Creatinine 206.40 H Urine Opiates Screen Ur Oxycodone Screen Urine Methadone Screen Ur Propoxyphene Screen Ur Barbiturates Screen Ur Tricyclics Screen Ur Phencyclidine Scrn Ur Amphetamines Screen U Methamphetamines Scrn U Benzodiazepines Scrn U Cocaine Metab Screen U Cannabinoids Screen Drug Screen Comment Blood Type Antibody Screen 11/20/17 11/21/17 11/21/17 17:21 00:22 00:22 WBC 12.7 H RBC 3.93 L Hgb 12.2 Hct 35.6 L MCV 90.6 MCH 31.1 H MCHC 34.4 RDW 14.5 Plt Count 227 MPV 6.8 L Neutrophils % (Manual) Band Neuts % (Manual) Lymphocytes % (Manual) Monocytes % (Manual) Eosinophils % (Manual) Plt Morphology Comment Sodium 136 Potassium 4.2 Chloride 112 H Carbon Dioxide 15 L Anion Gap 13 BUN 13 Creatinine 0.62 Estimated GFR (MDRD) Greater than 90 Glucose 130 H Uric Acid Calcium 8.5 Total Bilirubin 0.3 AST 9 ALT 7 L Alkaline Phosphatase 115 Lactate Dehydrogenase Serum Total Protein 6.2 Albumin 3.0 L Globulin 3.2 Albumin/Globulin Ratio 0.9 L Urine Protein Urine Creatinine Urine Opiates Screen Not Detected Ur Oxycodone Screen Not Detected Urine Methadone Screen Not Detected Ur Propoxyphene Screen Not Detected Ur Barbiturates Screen Not Detected Ur Tricyclics Screen Not Detected Ur Phencyclidine Scrn Not Detected Ur Amphetamines Screen Not Detected U Methamphetamines Scrn Not Detected U Benzodiazepines Scrn Not Detected U Cocaine Metab Screen Not Detected U Cannabinoids Screen Not Detected Drug Screen Comment Blood Type Antibody Screen [facility] PN:A/P - Problem List (1) Pre-eclampsia superimposed on chronic hypertension Status: Acute Code(s): O11.9 - PRE-EXISTING HYPERTENSION WITH PRE-ECLAMPSIA, UNSP TRIMESTER Comment: with severe features Assessment and Plan: s/p severe range pressures x2 with severe features and new onset headache. given tylenol and benydryl, loading dose mag. headache continues to be improved , pressures in the 130s and 140s most recent readin/68. Discussion: Date/Time: 11/21/17132 This H&P was discussed with [] and [] who agree with the above documentation and plan. Attending Addendum - Attending Addendum Date/Time: 11/21/17 2125 I personally evaluated the patient and discussed the management with Dr. Lin I agree with the History, Examination, Assessment and Plan documented above with any addition or exceptions noted below. 37 yo female at 31.3 wks now with superimposed preeclampsia with severe features. Continue mag sulfate ppx. Trend labs in AM. Headache improved. Continue to monitor status. Treat elevated BP with oral and IV medications. At this time will continue expectant management but if needed due to severity of disease will proceed with RLTCS. Patient s/p BMZ course for FLM < 14 days ago. Mel
--- NOTE | 2017-11-21 03:34 | PDOC.OBMPN ---
[facility] PN: Subj - Interval History Hospital Day: 2 Chief Complaint: High blood pressure Indentification: 37 year old at 31.3 by 11 week sono presents for eval elevated bp [facility] PN: Obj - Maternal Vital signs: BP: [165/78] HR: [] RR: [] Tmax: [] Pox: []% on [] Wt: [] - Heart Tones Baseline: 130 (reactive ) [facility] PN: Exam - Physical Exam General: other (somnolent) Heart: RRR, normal S1/S2 General: CTAB, no respiratory distress Neurological: DTR +1 [facility] PN: Data - Labs Lab results: Laboratory Results - last 24 hr 11/20/17 11/20/17 11/20/17 16:57 16:57 16:57 WBC 11.7 H RBC 3.84 L Hgb 12.1 Hct 34.2 L MCV 89.0 MCH 31.5 H MCHC 35.5 RDW 14.3 Plt Count 221 MPV 6.6 L Neutrophils % (Manual) 71 Band Neuts % (Manual) 3 L Lymphocytes % (Manual) 19 L Monocytes % (Manual) 5 Eosinophils % (Manual) 2 Plt Morphology Comment Appears Adequate Sodium 137 Potassium 3.9 Chloride 111 H Carbon Dioxide 17 L Anion Gap 13 BUN 17 Creatinine 0.64 Estimated GFR (MDRD) Greater than 90 Glucose 123 H Uric Acid Calcium 8.7 Total Bilirubin 0.3 AST 12 ALT 10 Alkaline Phosphatase 119 Lactate Dehydrogenase 216 Serum Total Protein 6.6 Albumin 3.2 L Globulin 3.4 Albumin/Globulin Ratio 0.9 L Urine Protein Urine Creatinine Urine Opiates Screen Ur Oxycodone Screen Urine Methadone Screen Ur Propoxyphene Screen Ur Barbiturates Screen Ur Tricyclics Screen Ur Phencyclidine Scrn Ur Amphetamines Screen U Methamphetamines Scrn U Benzodiazepines Scrn U Cocaine Metab Screen U Cannabinoids Screen Drug Screen Comment Blood Type A POSITIVE Antibody Screen NEGATIVE 11/20/17 11/20/17 11/20/17 16:57 17:21 17:21 WBC RBC Hgb Hct MCV MCH MCHC RDW Plt Count MPV Neutrophils % (Manual) Band Neuts % (Manual) Lymphocytes % (Manual) Monocytes % (Manual) Eosinophils % (Manual) Plt Morphology Comment Sodium Potassium Chloride Carbon Dioxide Anion Gap BUN Creatinine Estimated GFR (MDRD) Glucose Uric Acid 5.6 Calcium Total Bilirubin AST ALT Alkaline Phosphatase Lactate Dehydrogenase Serum Total Protein Albumin Globulin Albumin/Globulin Ratio Urine Protein 100 H Urine Creatinine 206.40 H Urine Opiates Screen Ur Oxycodone Screen Urine Methadone Screen Ur Propoxyphene Screen Ur Barbiturates Screen Ur Tricyclics Screen Ur Phencyclidine Scrn Ur Amphetamines Screen U Methamphetamines Scrn U Benzodiazepines Scrn U Cocaine Metab Screen U Cannabinoids Screen Drug Screen Comment Blood Type Antibody Screen 11/20/17 11/21/17 11/21/17 17:21 00:22 00:22 WBC 12.7 H RBC 3.93 L Hgb 12.2 Hct 35.6 L MCV 90.6 MCH 31.1 H MCHC 34.4 RDW 14.5 Plt Count 227 MPV 6.8 L Neutrophils % (Manual) Band Neuts % (Manual) Lymphocytes % (Manual) Monocytes % (Manual) Eosinophils % (Manual) Plt Morphology Comment Sodium 136 Potassium 4.2 Chloride 112 H Carbon Dioxide 15 L Anion Gap 13 BUN 13 Creatinine 0.62 Estimated GFR (MDRD) Greater than 90 Glucose 130 H Uric Acid Calcium 8.5 Total Bilirubin 0.3 AST 9 ALT 7 L Alkaline Phosphatase 115 Lactate Dehydrogenase Serum Total Protein 6.2 Albumin 3.0 L Globulin 3.2 Albumin/Globulin Ratio 0.9 L Urine Protein Urine Creatinine Urine Opiates Screen Not Detected Ur Oxycodone Screen Not Detected Urine Methadone Screen Not Detected Ur Propoxyphene Screen Not Detected Ur Barbiturates Screen Not Detected Ur Tricyclics Screen Not Detected Ur Phencyclidine Scrn Not Detected Ur Amphetamines Screen Not Detected U Methamphetamines Scrn Not Detected U Benzodiazepines Scrn Not Detected U Cocaine Metab Screen Not Detected U Cannabinoids Screen Not Detected Drug Screen Comment Blood Type Antibody Screen [facility] PN:A/P - Problem List (1) Pre-eclampsia superimposed on chronic hypertension Status: Acute Code(s): O11.9 - PRE-EXISTING HYPERTENSION WITH PRE-ECLAMPSIA, UNSP TRIMESTER Comment: with severe features Assessment and Plan: s/p severe range pressures x2 with severe features and new onset headache. given tylenol and benydryl, loading dose mag. She is complaining of a headache again, pressures in the 130s and 140s most recent reading outlier at: 165/71. will repeat blood pressure and continue to monitor Discussion: Date/Time: 11/21/17 3662 This H&P was discussed with [] and [] who agree with the above documentation and plan. Attending Addendum - Attending Addendum Date/Time: 11/21/17 0881 I personally evaluated the patient and discussed the management with Dr. Lin I agree with the History, Examination, Assessment and Plan documented above with any addition or exceptions noted below. 37 yo female at 31.4 wks now with superimposed preeclampsia with severe features. Continue mag sulfate ppx. Trend labs in AM. Currently asymptomatic. Continue to monitor status. Treat elevated BP with oral and IV medications. At this time will continue expectant management but if needed due to severity of disease will proceed with RLTCS. Patient s/p BMZ course for FLM < 14 days ago. Mel
[2017-11-21] MEDS ORDERED: Acetaminophen 500 MG TAB PO SCH (04:15)
--- NOTE | 2017-11-21 05:29 | PDOC.OBMPN ---
FMR OB LDICU PN: Subj - Interval History Hospital Day: 1 Chief Complaint: Elevated BPs Indentification: @31.4 Interval History: headache improved FMR OB LDICU PN: Obj - Maternal Vital signs: BP: [] HR: [] RR: [] Tmax: [] Pox: []% on [] Wt: [] - Urine output I&O: Urine Output: 200-250ml /hr - Heart Tones Baseline: 120 (reactive) Variability: moderate Acceleration: present FMR OB LDICU PN: Exam - Physical Exam General: NAD Neurological: DTR +1 FMR OB LDICU PN: Data - Labs Lab results: Laboratory Results - last 24 hr 11/20/17 11/20/17 11/20/17 16:57 16:57 16:57 WBC 11.7 H RBC 3.84 L Hgb 12.1 Hct 34.2 L MCV 89.0 MCH 31.5 H MCHC 35.5 RDW 14.3 Plt Count 221 MPV 6.6 L Neutrophils % (Manual) 71 Band Neuts % (Manual) 3 L Lymphocytes % (Manual) 19 L Monocytes % (Manual) 5 Eosinophils % (Manual) 2 Plt Morphology Comment Appears Adequate Sodium 137 Potassium 3.9 Chloride 111 H Carbon Dioxide 17 L Anion Gap 13 BUN 17 Creatinine 0.64 Estimated GFR (MDRD) Greater than 90 Glucose 123 H Uric Acid Calcium 8.7 Total Bilirubin 0.3 AST 12 ALT 10 Alkaline Phosphatase 119 Lactate Dehydrogenase 216 Serum Total Protein 6.6 Albumin 3.2 L Globulin 3.4 Albumin/Globulin Ratio 0.9 L Urine Protein Urine Creatinine Urine Opiates Screen Ur Oxycodone Screen Urine Methadone Screen Ur Propoxyphene Screen Ur Barbiturates Screen Ur Tricyclics Screen Ur Phencyclidine Scrn Ur Amphetamines Screen U Methamphetamines Scrn U Benzodiazepines Scrn U Cocaine Metab Screen U Cannabinoids Screen Drug Screen Comment Blood Type A POSITIVE Antibody Screen NEGATIVE 11/20/17 11/20/17 11/20/17 16:57 17:21 17:21 WBC RBC Hgb Hct MCV MCH MCHC RDW Plt Count MPV Neutrophils % (Manual) Band Neuts % (Manual) Lymphocytes % (Manual) Monocytes % (Manual) Eosinophils % (Manual) Plt Morphology Comment Sodium Potassium Chloride Carbon Dioxide Anion Gap BUN Creatinine Estimated GFR (MDRD) Glucose Uric Acid 5.6 Calcium Total Bilirubin AST ALT Alkaline Phosphatase Lactate Dehydrogenase Serum Total Protein Albumin Globulin Albumin/Globulin Ratio Urine Protein 100 H Urine Creatinine 206.40 H Urine Opiates Screen Ur Oxycodone Screen Urine Methadone Screen Ur Propoxyphene Screen Ur Barbiturates Screen Ur Tricyclics Screen Ur Phencyclidine Scrn Ur Amphetamines Screen U Methamphetamines Scrn U Benzodiazepines Scrn U Cocaine Metab Screen U Cannabinoids Screen Drug Screen Comment Blood Type Antibody Screen 11/20/17 11/21/17 11/21/17 17:21 00:22 00:22 WBC 12.7 H RBC 3.93 L Hgb 12.2 Hct 35.6 L MCV 90.6 MCH 31.1 H MCHC 34.4 RDW 14.5 Plt Count 227 MPV 6.8 L Neutrophils % (Manual) Band Neuts % (Manual) Lymphocytes % (Manual) Monocytes % (Manual) Eosinophils % (Manual) Plt Morphology Comment Sodium 136 Potassium 4.2 Chloride 112 H Carbon Dioxide 15 L Anion Gap 13 BUN 13 Creatinine 0.62 Estimated GFR (MDRD) Greater than 90 Glucose 130 H Uric Acid Calcium 8.5 Total Bilirubin 0.3 AST 9 ALT 7 L Alkaline Phosphatase 115 Lactate Dehydrogenase Serum Total Protein 6.2 Albumin 3.0 L Globulin 3.2 Albumin/Globulin Ratio 0.9 L Urine Protein Urine Creatinine Urine Opiates Screen Not Detected Ur Oxycodone Screen Not Detected Urine Methadone Screen Not Detected Ur Propoxyphene Screen Not Detected Ur Barbiturates Screen Not Detected Ur Tricyclics Screen Not Detected Ur Phencyclidine Scrn Not Detected Ur Amphetamines Screen Not Detected U Methamphetamines Scrn Not Detected U Benzodiazepines Scrn Not Detected U Cocaine Metab Screen Not Detected U Cannabinoids Screen Not Detected Drug Screen Comment Blood Type Antibody Screen FMR OB LDICU PN:A/P - Problem List (1) Pre-eclampsia superimposed on chronic hypertension Status: Acute Code(s): O11.9 - PRE-EXISTING HYPERTENSION WITH PRE-ECLAMPSIA, UNSP TRIMESTER Comment: with severe features Assessment and Plan: DTRs stable, BP in 130's-150's S. Headached improved with controlled BPs. Good urine output. -Continue clinical Mg checks -prn hydralazine available Discussion: Date/Time: 11/21/17526 This H&P was discussed with [] and [] who agree with the above documentation and plan. Attending Addendum - Attending Addendum Date/Time: 11/21/17 0036 I personally evaluated the patient and discussed the management with Dr. Murry I agree with the History, Examination, Assessment and Plan documented above with any addition or exceptions noted below. 37 yo female at 31.4 wks now with superimposed preeclampsia with severe features. Continue mag sulfate ppx. Trend labs in AM. Asymptomatic. Continue to monitor status - remains reassuring and appropriate for gestational age. Treat elevated BP with oral and IV medications. At this time will continue expectant management but if needed due to severity of disease will proceed with RLTCS. Patient s/p BMZ course for FLM < 14 days ago. Mel
[2017-11-21] MEDS: Magnesium Sulfate 20 gm/500 ml 20 GM/500 ML BAG IVPB SCH ×2 (05:47→16:19)
--- NOTE | 2017-11-21 07:29 | PDOC.OBMPN ---
FMR OB LDICU PN: Subj - Interval History Hospital Day: 2 Chief Complaint: headache, elevated BP Interval History: Feeling well and headache resolved with Tylenol. Sleeping comfortably. FMR OB LDICU PN: Obj - Maternal Vital signs: BP: 152/80, 157/81 HR: 65 RR: 18 - Urine output I&O: UOP 150-300 mL/hr - Heart Tones Baseline: 125 Variability: moderate Acceleration: absent Deceleration: absent Category: category 1 [place] contractions every: q5-6 min R OB LDICU PN: Exam - Physical Exam Deviation from normal: sleeping comfortably Chest: other (symmetric chest expansion, breathing nonlabored) Heart: RRR General: CTAB, no respiratory distress Abdomen: soft, gravid, non-tender Deviation from normal: DTR difficult to elicit, brachiocephalic reflexes 1+ BL Skin: good tugor R OB LDICU PN: Data - Labs Lab results: Laboratory Results - last 24 hr 11/20/17 11/20/17 11/20/17 16:57 16:57 16:57 WBC 11.7 H RBC 3.84 L Hgb 12.1 Hct 34.2 L MCV 89.0 MCH 31.5 H MCHC 35.5 RDW 14.3 Plt Count 221 MPV 6.6 L Neutrophils % (Manual) 71 Band Neuts % (Manual) 3 L Lymphocytes % (Manual) 19 L Monocytes % (Manual) 5 Eosinophils % (Manual) 2 Plt Morphology Comment Appears Adequate Sodium 137 Potassium 3.9 Chloride 111 H Carbon Dioxide 17 L Anion Gap 13 BUN 17 Creatinine 0.64 Estimated GFR (MDRD) Greater than 90 Glucose 123 H Uric Acid Calcium 8.7 Total Bilirubin 0.3 AST 12 ALT 10 Alkaline Phosphatase 119 Lactate Dehydrogenase 216 Serum Total Protein 6.6 Albumin 3.2 L Globulin 3.4 Albumin/Globulin Ratio 0.9 L Urine Protein Urine Creatinine Urine Opiates Screen Ur Oxycodone Screen Urine Methadone Screen Ur Propoxyphene Screen Ur Barbiturates Screen Ur Tricyclics Screen Ur Phencyclidine Scrn Ur Amphetamines Screen U Methamphetamines Scrn U Benzodiazepines Scrn U Cocaine Metab Screen U Cannabinoids Screen Drug Screen Comment Blood Type A POSITIVE Antibody Screen NEGATIVE 11/20/17 11/20/17 11/20/17 16:57 17:21 17:21 WBC RBC Hgb Hct MCV MCH MCHC RDW Plt Count MPV Neutrophils % (Manual) Band Neuts % (Manual) Lymphocytes % (Manual) Monocytes % (Manual) Eosinophils % (Manual) Plt Morphology Comment Sodium Potassium Chloride Carbon Dioxide Anion Gap BUN Creatinine Estimated GFR (MDRD) Glucose Uric Acid 5.6 Calcium Total Bilirubin AST ALT Alkaline Phosphatase Lactate Dehydrogenase Serum Total Protein Albumin Globulin Albumin/Globulin Ratio Urine Protein 100 H Urine Creatinine 206.40 H Urine Opiates Screen Ur Oxycodone Screen Urine Methadone Screen Ur Propoxyphene Screen Ur Barbiturates Screen Ur Tricyclics Screen Ur Phencyclidine Scrn Ur Amphetamines Screen U Methamphetamines Scrn U Benzodiazepines Scrn U Cocaine Metab Screen U Cannabinoids Screen Drug Screen Comment Blood Type Antibody Screen 11/20/17 11/21/17 11/21/17 17:21 00:22 00:22 WBC 12.7 H RBC 3.93 L Hgb 12.2 Hct 35.6 L MCV 90.6 MCH 31.1 H MCHC 34.4 RDW 14.5 Plt Count 227 MPV 6.8 L Neutrophils % (Manual) Band Neuts % (Manual) Lymphocytes % (Manual) Monocytes % (Manual) Eosinophils % (Manual) Plt Morphology Comment Sodium 136 Potassium 4.2 Chloride 112 H Carbon Dioxide 15 L Anion Gap 13 BUN 13 Creatinine 0.62 Estimated GFR (MDRD) Greater than 90 Glucose 130 H Uric Acid Calcium 8.5 Total Bilirubin 0.3 AST 9 ALT 7 L Alkaline Phosphatase 115 Lactate Dehydrogenase Serum Total Protein 6.2 Albumin 3.0 L Globulin 3.2 Albumin/Globulin Ratio 0.9 L Urine Protein Urine Creatinine Urine Opiates Screen Not Detected Ur Oxycodone Screen Not Detected Urine Methadone Screen Not Detected Ur Propoxyphene Screen Not Detected Ur Barbiturates Screen Not Detected Ur Tricyclics Screen Not Detected Ur Phencyclidine Scrn Not Detected Ur Amphetamines Screen Not Detected U Methamphetamines Scrn Not Detected U Benzodiazepines Scrn Not Detected U Cocaine Metab Screen Not Detected U Cannabinoids Screen Not Detected Drug Screen Comment Blood Type Antibody Screen FMR OB LDICU PN:A/P - Problem List (1) Pre-eclampsia superimposed on chronic hypertension Current Visit: Yes Status: Acute Code(s): O11.9 - PRE-EXISTING HYPERTENSION WITH PRE-ECLAMPSIA, UNSP TRIMESTER Comment: with severe features (2) Chronic hypertension affecting Current Visit: No Status: Acute Code(s): O10.919 - UNSP PRE-EXISTING HTN COMP , UNSP TRIMESTER (3) Grand multiparity Current Visit: No Status: Acute Code(s): Z64.1 - PROBLEMS RELATED TO MULTIPARITY (4) History of delivery Current Visit: No Status: Acute Code(s): Z98.891 - HISTORY OF UTERINE SCAR FROM PREVIOUS SURGERY Disposition: 37 yo at 31.4w (EDC 01/19/18) by LMP/11.6w sono at OSH here with superimposed pre-eclampsia 1. cHTN with superimposed pre-eclampsia - Continue Mg sulfate for 24 hours, started at 2109 on 11/20 - BP adequately controlled at this time - Rare severe range pressure which has been < 160/100 on repeat - If BP persistently elevated increase labetalol to 400 mg BID with hydralazine PRN - Labetalol/Hydralazine PRN > 160/100 - Headache resolved currently with Tylenol - UOP 150-300 mL/hr - Will recheck LFTs, platelets, Cr and Mg at noon 2. IUP - Steroids given on 11/10& - Will need repeat course 11/25- after if still - Goal 30-60 seconds cord clamping delay - Receiving Mg sulfate as above for eclampsia prophylaxis - Goal 34w gestational age - Will notify NICU 3. Prior C/S x3 - Plan for delivery is repeat C/S - Placenta documented posterior on recent BPP 4. H/o syphilis - positive syphilis antibody, RPR titer 1:4 - s/p tx in 2010 per patient - FTA-ABS pending - Will notify NICU 5. Grand multiparity - Risk of PPH 6. Advanced maternal age - No quad screen this 7. Scant/late to care - 1st visit at [facility] on 11/20/17, 2 hospitalizations at [facility] prior to that and eval at [facility] in [facility] early in - Labs reviewed: proteinuria and RPR pertinent positives as well as GBS unknown 8. Proteinuria - 24hour urine collection in progress - value 308 on 11/11 - Pr/Cr 0.49 9. GBS unknown Will continue Mg for 24 hours. Attending Addendum - Attending Addendum Date/Time: 11/21/17 8349 I personally evaluated the patient and discussed the management with Dr. Stein I agree with the History, Examination, Assessment and Plan documented above with any addition or exceptions noted below.
[2017-11-21] MEDS ORDERED: Labetalol HCl 100 MG/20 ML VIAL SLOW IVP SCH (08:15)
[2017-11-21] MEDS ORDERED: Labetalol 100 MG TAB PO SCH (09:00)
[2017-11-21] MEDS ORDERED: hydrALAZINE 20 MG/ML VIAL SLOW IVP PRN (09:04)
[2017-11-21] MEDS ORDERED: Acetaminophen 500 MG TAB PO PRN (09:06)
[2017-11-21] MEDS: Labetalol 100 MG TAB PO SCH ×2 (09:06→21:39)
[2017-11-21] MEDS ORDERED: CEFAZOLIN/Water 2 GM/20 ML SYRINGE ONE (11:10)
[2017-11-21] MEDS ORDERED: Bicitra 30 ML UDCUP ONE (11:11)
--- NOTE | 2017-11-21 11:27 | PDOC.EVN ---
Event Note - Event Note Event Note: Patient having persistent severe range BP despite increase in PO labetalol dose , IV labetalol and IV hydralazine. Worsening headache now with vision changes ( blurring). Discussed situation with patient, nursing, Dr. Morris (neonatology) and Dr. Dill ([employer] hospitalist) and decision to proceed with repeat C/S agreeable by all. Will plan to proceed with repeat LTCS for persistent severe pressures, vision changes, with superimposed pre-eclampsia on cHTN. <Irma Stein - Last Filed: 11/21/17 11:28> Attending Addendum - Attending Addendum Date/Time: 11/21/17 1612 I personally evaluated the patient and discussed the management with Dr. Stein Accelerating preeclampsia despite 3 agents (Procardia, Labetolol and Hydralazine ). Discussed definitive TX = Delivery. Arrangements made with OR, Neonatology and Laborist <Benedicto Coello - Last Filed: 11/21/17 16:14>
[2017-11-21] MEDS ORDERED: Morphine PF 1 MG/ML SYR ONE (11:33)
[2017-11-21] MEDS ORDERED: Ketorolac Tromethamine 30 MG/ML VIAL ONE ×2 (11:34→12:44)
[2017-11-21] MEDS ORDERED: Dexamethasone 4 mg/ml Vial ONE (11:34)
[2017-11-21] MEDS ORDERED: Oxytocin 10 UNITS/ML VIAL ONE ×2 (11:34→11:36)
[2017-11-21] MEDS ORDERED: Ondansetron HCl/PF 4 MG/2 ML Vial ONE ×4 (11:34→13:29)
[2017-11-21] MEDS ORDERED: PHENYLEPHRINE-NS 100 MCG/ML 10 ML SYRINGE ONE ×4 (11:36→12:55)
[2017-11-21] MEDS ORDERED: Bicitra 30 ML UDCUP PO SCH (11:45)
[2017-11-21] MEDS ORDERED: Bupivacaine 0.75% W/DEXTROSE 8.25% 2 ML AMP ONE (11:47)
[2017-11-21] MEDS ORDERED: Lidocaine 1% PF 5 ML VIAL ONE (11:55)
[2017-11-21] MEDS ORDERED: ePHEDrine/0.9% NaCl/PF SYRINGE 50 mg/10 ml ONE ×3 (12:21→13:04)
[2017-11-21] MEDS ORDERED: Metoclopramide HCl 10 MG/2 ML VIAL ONE ×2 (12:44→12:58)
[2017-11-21] MEDS ORDERED: Dexamethasone 20 MG/5 ML VIAL ONE (12:44)
[2017-11-21] MEDS ORDERED: Midazolam HCl 2 mg/2 ml Vial ONE ×2 (13:00→13:31)
[2017-11-21] MEDS ORDERED: EPINEPHrine 1 MG/10 ML Abboject SYRINGE ONE (13:03)
[2017-11-21] MEDS ORDERED: HYDROmorphone 2 MG/ML VIAL SLOW IVP PRN (13:17)
[2017-11-21] MEDS ORDERED: Eucerin (Mineral Oil/Petrolatum,White) 30 gm Jar TOP PRN (13:17)
[2017-11-21] MEDS ORDERED: Ondansetron HCl/PF 4 MG/2 ML Vial IVP PRN ×2 (13:17)
[2017-11-21] MEDS ORDERED: Ketorolac Tromethamine 30 MG/ML VIAL IVP PRN (13:17)
[2017-11-21] MEDS ORDERED: Naloxone HCl 0.4 mg/ml Vial IVP PRN ×2 (13:17)
[2017-11-21] MEDS ORDERED: diphenhydrAMINE 50 MG/ML VIAL IVP PRN (13:17)
[2017-11-21] MEDS ORDERED: Promethazine HCl 25 MG SUPP PR PRN (13:17)
[2017-11-21] MEDS ORDERED: Promethazine HCl 25 MG/ML VIAL IM PRN (13:17)
[2017-11-21] MEDS ORDERED: Meperidine HCl/PF 25 MG/ML VIAL SLOW IVP PRN (13:17)
[2017-11-21] MEDS ORDERED: Naloxone HCl 0.4 mg/ml Vial IV PRN (13:17)
[2017-11-21] MEDS ORDERED: Ketorolac Tromethamine 30 MG/ML VIAL IVP SCH (13:30)
[2017-11-21] MEDS ORDERED: Communication Order-Pharmacy FS SCH (13:30)
[2017-11-21] MEDS ORDERED: Ketamine 50 MG/ML VIAL ONE (13:37)
[2017-11-21] MEDS ORDERED: CEFAZOLIN 2 GM in Sodium Chloride 0.9% 100 ML IVPB SCH (14:00)
[2017-11-21 14:17] LABS: Actual Bicarbonate (HCO3a) 22.5 mEq/L (22-28); Analyzer IN Cardio OR; Base Excess (BEa) -7.2 mEq/L (-2.0 to +3.0)
[2017-11-21 16:11] LABS: Hemoglobin 12.4 g/dL (12.0-16.0); Platelet Count 233 thou/uL (130-400)
[2017-11-21 16:17] LABS: INR-International Normal Ratio 0.9; PTT 29.3 SEC (22.9-36.1); Prothrombin Time 12.7 SEC (12.0-14.7)
[2017-11-21 16:35] LABS: ALT (SGPT) 8 U/L (8-55); AST (SGOT) 15 U/L (5-34); Albumin 3.1 g/dL (3.5-5.0); Alkaline Phosphatase 122 U/L (40-150); Bilirubin, Direct 0.2 mg/dL (0.1-0.3); Bilirubin, Total 0.5 mg/dL (0.2-1.2); Calc. Creatinine Clearance 207 mL/min (70-130); Estimated GFR-MDRD Greater than 90; Magnesium 5.6 mg/dL (1.6-2.6); Protein, Total 5.9 g/dL (6.0-8.3)
[2017-11-21] MEDS ORDERED: HYDROcodone/Acetaminophen 5/325 mg Tablet PO PRN ×2 (17:29)
[2017-11-21] MEDS ORDERED: Adacel (T-DAP) 0.5 ML VIAL IM ONE (17:30)
[2017-11-21] MEDS ORDERED: Lanolin Ointment 7 GM TUBE TOP PRN (17:30)
[2017-11-21] MEDS: Lactated Ringer's 1,000 ML IV SCH (18:13)
--- NOTE | 2017-11-21 18:27 | PDOC.OBPPN ---
FMR OB PN: Subj - Interval History Hospital Day: 2 Day: 0 Chief Complaint: none Interval History: 37 yo G10 now P4429 4 hours post-op from repeat LTCS FMR OB PN: Obj - Maternal Vital signs: BP: 150-163/80-84 HR: 55-60 RR: 18 Tmax: 94.0 (rectal), recheck 97.6 Pox: 94% on RA - Urine output I&O: UOP 300 mL over last 4 hours - Lochia Lochia: Minimal - Pain Management Pain scale: 0 Intervention: other (residual from spinal) FMR OB PN: Exam - Physical Exam General: NAD, awake, alert and oriented HEENT: MMM, conjunctiva clear, grossly normal vision Neck: supple Heart: RRR, normal S1/S2 Deviation from normal: expiratory rhonchi BL upper lobes Abdomen: soft, other (appropriately tender to palpation) Neurological: DTR +2 Skin: good tugor (incision with bandage in place) : bandage intact Psychiatric: good judgement and insight, normal mood and affect FMR OB PN: Data - Labs Lab results: Laboratory Results - last 24 hr 11/21/17 11/21/17 11/21/17 00:22 00:22 12:55 WBC 12.7 H RBC 3.93 L Hgb 12.2 Hct 35.6 L MCV 90.6 MCH 31.1 H MCHC 34.4 RDW 14.5 Plt Count 227 MPV 6.8 L PT INR APTT Bicarbonate Actual 22.5 ABG pCO2 63.3 H* ABG Base Excess -7.2 L Cord ABG pH 7.17 L* Sodium 136 Potassium 4.2 Chloride 112 H Carbon Dioxide 15 L Anion Gap 13 BUN 13 Creatinine 0.62 Estimated GFR (MDRD) Greater than 90 Glucose 130 H Calcium 8.5 Magnesium Total Bilirubin 0.3 Direct Bilirubin AST 9 ALT 7 L Alkaline Phosphatase 115 Serum Total Protein 6.2 Albumin 3.0 L Globulin 3.2 Albumin/Globulin Ratio 0.9 L 11/21/17 11/21/17 11/21/17 15:54 15:54 15:54 WBC RBC Hgb 12.4 Hct 36.3 MCV MCH MCHC RDW Plt Count 233 MPV PT 12.7 INR 0.9 APTT 29.3 Bicarbonate Actual ABG pCO2 ABG Base Excess Cord ABG pH Sodium Potassium Chloride Carbon Dioxide Anion Gap BUN Creatinine 0.60 Estimated GFR (MDRD) Greater than 90 Glucose Calcium Magnesium 5.6 H Total Bilirubin 0.5 Direct Bilirubin 0.2 AST 15 ALT 8 Alkaline Phosphatase 122 Serum Total Protein 5.9 L Albumin 3.1 L Globulin Albumin/Globulin Ratio FMR OB PN: A/P - Problem List (1) Pre-eclampsia superimposed on chronic hypertension Status: Acute Code(s): O11.9 - PRE-EXISTING HYPERTENSION WITH PRE-ECLAMPSIA, UNSP TRIMESTER Comment: with severe features (2) Chronic hypertension affecting Status: Acute Code(s): O10.919 - UNSP PRE-EXISTING HTN COMP , UNSP TRIMESTER (3) Grand multiparity Status: Acute Code(s): Z64.1 - PROBLEMS RELATED TO MULTIPARITY (4) History of delivery Status: Acute Code(s): Z98.891 - HISTORY OF UTERINE SCAR FROM PREVIOUS SURGERY Disposition: 37 yo now P4429 s/p repeat LTCS c/b extensive adhesions and L lateral extension and pre-elampsia with severe features 1. s/p repeat LTCS @ 31.4w by 11.6w sono - c/b bladder adhesions to anterior uterine wall - no bladder injury identified at time of operation confirmed by methylene blue infusion - Dr. Martin consulted intraoperatively to assist with bladder dissection and repair completed successfully - post-op course complicated by ongoing elevated BP and hypothermia - continue warm fluids, bear huggers, and frequent temperature checks - pain control with norco once anesthesia from delivery no longer adequate - hemagram in a.m. 2. Superimposed pre-eclampsia on cHTN - Mg for 24h approx 2 pm tomorrow - PO labetalol and procardia scheduled - PRN hydralazine 10mg q15 min for BP > 160/100 - Mg checks q1 hr by nursing, q4 by MD unless more frequent indicated 3. H/o syphilis - positive syphilis antibody, RPR titer 1:4 - s/p tx in 2010 per patient - FTA-ABS pending - NICU notified 4. Grand multiparity - desires IUD (Paragard) 5. Advanced maternal age - No quad screen this 6. Scant/late to care - 1st visit at [facility] on 11/20/17, 2 hospitalizations at [facility] prior to that and eval at [facility] in [facility] early in - Labs reviewed: proteinuria and RPR pertinent positives as well as GBS unknown 7. Proteinuria - 24hour urine collection in progress - value 308 on 11/11 - Pr/Cr 0.49 8. H/o twin delivery Will continue Mg for 24 hours Discussion: Date/Time: 11/21/171824 This H&P was discussed with Dr. Nolan who agree with the above documentation and plan. Attending Addendum - Attending Addendum Date/Time: 11/21/171921 I personally evaluated the patient and discussed the management with Dr. Stein I agree with the History, Examination, Assessment and Plan documented above with any addition or exceptions noted below. s/p complicated RLTCS. PPD#0. Doing well. Continue mag ppx. Monitor VS and UOP closely. Make sure pain controlled. Monitor lochia. Transfer to pp when stable. Mel
[2017-11-21] MEDS: NIFEdipine XL 60 MG TAB PO SCH (18:33)
[2017-11-21] MEDS ORDERED: CEFAZOLIN/Water 2 GM/20 ML SYRINGE SLOW IVP SCH ×2 (19:00→20:00)
--- NOTE | 2017-11-21 21:06 | CON ---
DATE OF CONSULTATION: 11/21/2017 ADMITTING PHYSICIAN: Lester Lane M.D. CONSULTING PHYSICIAN: Terry Dill M.D. REASON FOR CONSULTATION: Intraoperative consult. HISTORY OF PRESENT ILLNESS: Ms. Hill is a 37-year-old multiparous patient with a history of 3 previous C-sections who has been admitted now 3 times for labile blood pressures. She was admi tted this last time by the [facility] department and has remained with labile blood pressures re quiring multiple agents for control while on magnesium. Decision was made to proceed with delivery b y the [facility] team. I concur with this decision. The patient has been given steroids approx imately 10 days ago. The patient was taken to the operating room where a repeat section was performed. The abdom en was entered by the [facility] team and I scrubbed in at this point. Assessment of the uterus demonstrated an adherent bladder to the lower segment, it could not be easily dissected. A transver se incision was made across the lower uterine segment and the head was well applied. The fet us was delivered and the cord was clamped and cut. The baby was taken to the warmer. The placenta w as manually removed and the inside of the uterus was curetted with a dry lap. Once the incision was reviewed, it could be seen that the transverse incision was in very close proximity to the edge of th e adherent bladder. Methylene blue was placed into the bladder and there was no evidence of defect, although it could be seen that I would not be able to easily dissect the bladder off the lower uterin e segment. Urology was consulted. Dr. Martin came to help. She was able to dissect the bladder off the lower u terine segment carefully and then I was able to accomplish closure of the lower uterine segment using #1 chromic suture. The uterus was then replaced in the abdominal cavity and the lower uterine segme nt was again reviewed and was noted to be hemostatic. The abdomen was then closed by the [facility] shanika team. The patient tolerated the procedure well.
--- NOTE | 2017-11-21 22:42 | OP ---
DATE OF SERVICE: 11/21/2017 PREOPERATIVE DIAGNOSIS: Pelvic adhesions. POSTOPERATIVE DIAGNOSIS: Pelvic adhesions. PROCEDURE: Dissecting plane between the uterus and the bladder. SURGEON: Kelle Martin M.D. HALL WORKER: . ESTIMATED BLOOD LOSS: Minimal. COMPLICATIONS: None. DRAINS REMAINING: She still had a [place] catheter and any other drain would be dictated by the other physician. INDICATIONS: Patient is a 37-year-old female who had some preeclampsia and he already had multiple prior C-sections and went for more urgent and then delivered a healthy baby via and then when they were closing, there was concern regarding adhesions from the uterus to the bladder such that they were concerned there was not enough tissue plane to safely close the uterus without injuring the bladder, so I was consulted. The patient was already in supine position with a curtain up but appeared comfortably sleeping despite having epidural and IV sedation. The uterus was opened and significantly large consistent with recent . The bladder was relatively full as they clamped off the Chilel in place methylene blue within it already before I was there. There was no concern for any methylene blue spilling into the wound. Then, using Metzenbaum scissors, a plane between the bladder and the uterus was made in order to give them enough purchase for closure of the uterine incision safely. Once this was done, then I stayed until he was able to adequately close the uterine incision, making sure there was no excess tension or concern regarding injury to the bladder. Once the uterus was closed, hemostasis was ensured. I let them continue to close the patient. There did not appear to be any significant injury or trauma to the bladder itself, For this reason, she does not need any extended length of time other than the normal post-c-sxn for regarding the Chilel. LOKI
--- NOTE | 2017-11-21 23:08 | PDOC.EVN ---
Event Note - Event Note Event Note: 37 yo now P4429 s/p repeat LTCS c/b extensive adhesions and L lateral extension and pre-elampsia with severe features. Mg check @ 23:00: - Patient denies any CARRERO or chest pain. BPs controlled between 157/95 to 142/78 on labetalol BID. Has hydralazine PRN but has not required any. - UO 75-100mL per hour. Consider starting lasix by next Mag check if UO has not increased by then. - Reflexes intact. - No concern for Mg toxicity at this time. - Will continue with IV Mg for 24 hrs until 2pm tomorrow.
[2017-11-22] MEDS: Lactated Ringer's 1,000 ML IV SCH ×3 (03:01→18:25)
[2017-11-22] MEDS: Magnesium Sulfate 20 gm/500 ml 20 GM/500 ML BAG IVPB SCH ×2 (03:01→13:09)
[2017-11-22] MEDS ORDERED: CEFAZOLIN/Water 2 GM/20 ML SYRINGE SLOW IVP SCH (04:30)
--- NOTE | 2017-11-22 04:32 | PDOC.OBMPN ---
FMR OB LDICU PN: Subj - Interval History Chief Complaint: high BP Indentification: 37 year old s/p RLTCS FMR OB LDICU PN: Obj - Maternal Vital signs: BP: [149/87] HR: [] RR: [] Tmax: [] Pox: []% on [] Wt: [] - Urine output I&O: Urine output: 275ml since last check 11/20/17 11/21/17 11/22/17 06:59 06:59 06:59 Intake Total 250 Output Total 300 Balance -50 FMR OB LDICU PN: Exam - Physical Exam General: NAD, awake, alert and oriented Heart: no edema Neurological: DTR +2 FMR OB LDICU PN: Data - Labs Lab results: Laboratory Results - last 24 hr 11/21/17 11/21/17 11/21/17 12:55 15:54 15:54 Hgb 12.4 Hct 36.3 Plt Count 233 PT INR APTT Bicarbonate Actual 22.5 ABG pCO2 63.3 H* ABG Base Excess -7.2 L Cord ABG pH 7.17 L* Creatinine 0.60 Estimated GFR (MDRD) Greater than 90 Magnesium 5.6 H Total Bilirubin 0.5 Direct Bilirubin 0.2 AST 15 ALT 8 Alkaline Phosphatase 122 Serum Total Protein 5.9 L Albumin 3.1 L 11/21/17 15:54 Hgb Hct Plt Count PT 12.7 INR 0.9 APTT 29.3 Bicarbonate Actual ABG pCO2 ABG Base Excess Cord ABG pH Creatinine Estimated GFR (MDRD) Magnesium Total Bilirubin Direct Bilirubin AST ALT Alkaline Phosphatase Serum Total Protein Albumin FMR OB LDICU PN:A/P - Problem List (1) Pre-eclampsia superimposed on chronic hypertension Status: Acute Code(s): O11.9 - PRE-EXISTING HYPERTENSION WITH PRE-ECLAMPSIA, UNSP TRIMESTER Comment: with severe features Assessment and Plan: BP improved with properly sized/placed cuff. Pt is asymptomatic and producing good urine. -continue to monitor -reassess in 4 hours Discussion: Date/Time: 11/22/17 2089 This H&P was discussed with [] and [] who agree with the above documentation and plan. Attending Addendum - Attending Addendum Date/Time: 11/22/17 6892 I personally evaluated the patient and discussed the management with Dr. Murry I agree with the History, Examination, Assessment and Plan documented above with any addition or exceptions noted below. Doing well. No s/sx of mag tox. Continue to monitor closely. Mel
[2017-11-22 06:23] LABS: #Lymphocytes 2.2 thou/uL (1.20-3.40); #Monocytes 0.9 thou/uL (0.11-0.59); #Neutrophils 14.5 thou/uL (1.40-6.50); %Basophils 0.2 % (0.0-1.0); %Eosinophils 0.1 % (0.0-10.0); %Lymphocytes 12.6 % (21.0-51.0); %Monocytes 5.2 % (0.0-10.0); %Neutrophils 81.9 % (42.0-75.0); Mean Corpuscular HGB CONC 33.2 g/dL (32.0-36.0); Mean Corpuscular Hemoglobin 30.3 pg (27.0-31.0); Mean Corpuscular Volume 91.3 fL (78.0-98.0); Mean Platelet Volume 6.8 fL (7.4-10.4); Platelet Count 249 thou/uL (130-400); RBC Distribution Width 14.4 % (11.5-14.5); Red Blood Cell (RBC) Count 3.62 mill/uL (4.20-5.40); White Blood Cell (WBC) Count 17.7 thou/uL (4.8-10.8)
--- NOTE | 2017-11-22 08:47 | PDOC.OBPPN ---
FMR OB PN: Subj - Interval History Hospital Day: 3 Day: 1 Chief Complaint: hungry Interval History: Doing well overnight, BP stable, asymtomatic FMR OB PN: Obj - Maternal Vital signs: BP: 353-052-02-84 HR: 65 RR: 18 Tmax: 97.6 Pox:100% on RA - Urine output I&O: 11/21/17 11/22/17 11/23/17 06:59 06:59 06:59 Intake Total 250 Output Total 300 Balance -50 UOP 75-275/hr from midnight-6am - Lochia Lochia: minimal FMR OB PN: Exam - Physical Exam General: NAD, awake, alert and oriented HEENT: normocephalic and atraumatic, conjunctiva clear Neck: supple Heart: RRR, normal S1/S2 General: CTAB, no respiratory distress Abdomen: soft, other (appropriately tender to palpation, fundus just below umbilicus) Musculoskeletal: pulses present Neurological: DTR +2 Skin: good tugor, capillary refill <2 seconds : bandage intact FMR OB PN: Data - Labs Lab results: Laboratory Results - last 24 hr 11/21/17 11/21/17 11/21/17 12:55 15:54 15:54 WBC RBC Hgb 12.4 Hct 36.3 MCV MCH MCHC RDW Plt Count 233 MPV Neutrophils % Lymphocytes % Monocytes % Eosinophils % Basophils % Neutrophils # Lymphocytes # Monocytes # Eosinophils # Basophils # PT INR APTT Bicarbonate Actual 22.5 ABG pCO2 63.3 H* ABG Base Excess -7.2 L Cord ABG pH 7.17 L* Creatinine 0.60 Estimated GFR (MDRD) Greater than 90 Magnesium 5.6 H Total Bilirubin 0.5 Direct Bilirubin 0.2 AST 15 ALT 8 Alkaline Phosphatase 122 Serum Total Protein 5.9 L Albumin 3.1 L 11/21/17 11/22/17 15:54 05:21 WBC 17.7 H RBC 3.62 L Hgb 11.0 L Hct 33.0 L MCV 91.3 MCH 30.3 MCHC 33.2 RDW 14.4 Plt Count 249 MPV 6.8 L Neutrophils % 81.9 H Lymphocytes % 12.6 L Monocytes % 5.2 Eosinophils % 0.1 Basophils % 0.2 Neutrophils # 14.5 H Lymphocytes # 2.2 Monocytes # 0.9 H Eosinophils # 0.0 Basophils # 0.0 PT 12.7 INR 0.9 APTT 29.3 Bicarbonate Actual ABG pCO2 ABG Base Excess Cord ABG pH Creatinine Estimated GFR (MDRD) Magnesium Total Bilirubin Direct Bilirubin AST ALT Alkaline Phosphatase Serum Total Protein Albumin FMR OB PN: A/P - Problem List (1) Pre-eclampsia superimposed on chronic hypertension Current Visit: Yes Status: Acute Code(s): O11.9 - PRE-EXISTING HYPERTENSION WITH PRE-ECLAMPSIA, UNSP TRIMESTER Comment: with severe features (2) Chronic hypertension affecting Current Visit: No Status: Acute Code(s): O10.919 - UNSP PRE-EXISTING HTN COMP , UNSP TRIMESTER (3) Grand multiparity Current Visit: No Status: Acute Code(s): Z64.1 - PROBLEMS RELATED TO MULTIPARITY (4) History of delivery Current Visit: No Status: Acute Code(s): Z98.891 - HISTORY OF UTERINE SCAR FROM PREVIOUS SURGERY Disposition: 37 yo now [id number] s/p repeat LTCS c/b extensive adhesions and L lateral extension and pre-elampsia with severe features 1. s/p repeat LTCS @ 31.4w by 11.6w sono (POD #1) - Appreciate Dr. Dill and OB hospitalist service assistance - c/b bladder adhesions to anterior uterine wall - no bladder injury identified at time of operation confirmed by methylene blue infusion - Dr. Martin consulted intraoperatively to assist with bladder dissection and repair completed successfully - post-op course complicated by ongoing elevated BP and hypothermia - temp stable overnight - pain control with norco PRN - H&H this a.m. 2. Superimposed pre-eclampsia on cHTN - Mg for 24h approx 2 pm today - PO labetalol and procardia scheduled - PRN hydralazine 10mg q15 min for BP > 160/100 - Mg checks q1 hr by nursing, q4 by MD unless more frequent indicated - UOP 100-300 mL/hr overnight 3. H/o syphilis - positive syphilis antibody, RPR titer 1:4 - s/p tx in 2010 per patient - FTA-ABS pending - NICU notified 4. Grand multiparity - desires IUD (Paragard) 5. Advanced maternal age - No quad screen this 6. Scant/late to care - 1st visit at [facility] on 11/20/17, 2 hospitalizations at [facility] prior to that and eval at [facility] in [facility] early in - Labs reviewed: proteinuria and RPR pertinent positives as well as GBS unknown 7. Proteinuria - 24hour urine collection disrupted by C/S and requirement for methylene blue - value 308 on 11/11 - Pr/Cr 0.49 8. H/o twin delivery Will continue Mg for 24 hours Attending Addendum - Attending Addendum Date/Time: 11/22/17 [id number] I personally evaluated the patient and discussed the management with Dr. Stein. I agree with the History, Examination, Assessment and Plan documented above with any addition or exceptions noted below. Significant improvement in BP post delivery. D/C Mag (24 hours PP) and advance diet and activity. Shower later today and remove dressing for inspection. Watch BP closely and adjust meds as indicated.
[2017-11-22] MEDS ORDERED: Prenatal Vitamin 1 TAB PO SCH (09:00)
[2017-11-22] MEDS: Labetalol 100 MG TAB PO SCH ×2 (09:02→22:14)
[2017-11-22] MEDS: NIFEdipine XL 60 MG TAB PO SCH (09:02)
--- NOTE | 2017-11-22 09:27 | PRG ---
DATE OF SERVICE: 11/22/2017 The patient is status post urgent for preeclampsia and I was consulted to help with dissection of the bladder to prevent injury. There was no noted intraoperative injury to the bladder itself and they were able to successfully close the uterus. Dr. Dill completed the case without further incident. The patient has done well overnight. She has no complaints. Her pain is controlled. Her blood pressure is doing better. She still has a Chilel catheter in. Vital signs have improved. Blood pressure is 142/78, heart rate 60 and she has remained afebrile. It is only listed 300 mL of output, but the urine itself was almost twice, I suspect there is more that is not listed yet. ASSESSMEN: We have a 37-year-old female status post after multiple priors for preeclampsia without any significant bladder injury and otherwise doing well. For this reason, Chilel can be removed as anticipated per the primary team and if there are further issues, please do not hesitate to call. LOKI
[2017-11-22 11:20] LABS: Syphilis Antibody Index 9.05 S/CO (<1.00 Non-Reactive)
--- NOTE | 2017-11-22 14:08 | DN-2 ---
DATE OF PROCEDURE: 11/21/2017 RESIDENT SURGEON: Irma Stein M.D. METAL TURNER SURGEON: Ion Marques MD ATTENDING SURGEON: Benedicto Coello MD with Dr. Terry Dill, consulted for anticipated complicated mikie evans. PROCEDURE: Repeat low transverse section. PREOPERATIVE DIAGNOSES: 1. intrauterine . 2. Prior x3. 3. Superimposed preeclampsia, on chronic hypertension. 4. History of syphilis, status post treatment. 5. Grand multiparity. 6. Advanced maternal age. 7. Scant care. 8. Proteinuria. 9. GBS unknown. POSTOPERATIVE DIAGNOSES: 1. Term intrauterine , status post repeat section with extensive anterior uterine adhesions and left lateral extension. 2. Prior x3. 3. Superimposed preeclampsia, on chronic hypertension. 4. History of syphilis, status post treatment. 5. Grand multiparity. 6. Advanced maternal age. 7. Scant care. 8. Proteinuria. 9. GBS unknown. ANESTHESIA: Spinal. INDICATIONS: The patient is a 37-year-old female ,3,2,8 now 4,4,2,9 female at 31.4 weeks gesta tion who presented with elevated blood pressures from , found to have superimposed preeclamp raul, not responsive to 3 separate blood pressure medications and worsening headache and blood pressur es. PROCEDURE IN DETAIL: After risks, benefits, and alternatives were explained to the patient, she gave informed consent. Preoperative antibiotics included cefazolin 2 grams IV. The patient was taken to the operating room and spinal anesthesia was initiated. She was placed in supine position with left tilt and prepped and draped in sterile fashion. Pfannenstiel incision was made with scalpel and car ried down to the level of the fascia which was sharply nicked. The fascial cut was extended bilatera lly with Jc scissors. The inferior and superior edges of the cut fascial edges were elevated with Nuris clamps and underlying rectus muscles were sharply and bluntly dissected free with some superio r adhesions noted. The recti were divided digitally with great difficulty as the patient had extensi ve adhesions on the underside of the rectus, peritoneum that were adherent in the bladder to the ante rior wall of her uterus. The peritoneum was entered bluntly and retracted manually. The bladder moe de was placed and a bladder flap was attempted, but unable to be treated secondary to adhesions. A l ow transverse score was made with good distance from the bladder tissue with the scalpel and the uter us was entered in the midline. Clear fluid was seen. The hysterotomy was extended manually. The in emmanuel was noted to be vertex and was delivered by fundal pressure. Mouth and nares were bulb suctione d and a cord was clamped and cut. appearing female infant was handed to awaiting nurse. Cor d segment was obtained and cord blood was obtained. The placenta was manually extracted and found to be intact and sent to pathology. The uterus was externalized with some difficulty and the endometri um was curetted with a dry lap. The bladder blade was replaced and the uterus was found to have ante rior bladder adhesions. There was not substantial lower uterine segment to perform a safe repair and therefore Dr. Martin with Urology was consulted for assistance with dissecting the bladder away from the anterior uterine wall. After this was safely completed, the hysterotomy was noted to have a lef t lateral extension. This was repaired with running locking #1 Monocryl suture. The remainder of th e hysterotomy was closed with running locking 0 chromic suture. Following this, hemostasis was noted . The uterus was internalized and hysterotomy was again noted to be hemostatic. The rectus muscle w as examined and not found to have any evidence of bleeding. The fascia was closed with running nonlo cking 0 PDS suture. The subcutaneous tissue was irrigated and there were no bleeders. The subcutane ous fat was closed with 3 interrupted 2-0 plain gut sutures. The skin was approximated with eleno and a pressure dressing was applied. All counts were correct. The patient tolerated the procedure w ell and taken to recovery room to continue IV magnesium infusion and for close monitoring for recover y. Quantitative blood loss was 915 mL. COMPLICATIONS: Left lateral extension and extensive anterior uterine wall adhesions to the bladder. Urology as well as CALL CENTER ASSISTANT were both consulted and assisted and safe dissection repair. SPECIMENS: Cord blood sent to blood type and cord segment sent for gas which was pH 7.17, pCO2 of 63 .3 and base excess of negative 7.2. FINDINGS: Grossly normal female infant with Apgars of 8 and 9. Placenta sent to pathology. JACKSON: Jackson to gravity draining blue urine which was used for confirming no bladder injury had occu rred. The lower uterine segment was noted to have significant adhesions. The Jackson was infiltrated with me thylene blue and filled to descend the bladder slightly so the bladder edges could be identified.
[2017-11-22] MEDS ORDERED: Adacel (T-DAP) 0.5 ML VIAL IM ONE (19:16)
[2017-11-22] MEDS ORDERED: Bisacodyl 10 MG SUPP PR PRN (19:16)
[2017-11-22] MEDS ORDERED: Acetaminophen 325 MG TAB PO PRN (19:16)
[2017-11-22] MEDS ORDERED: Simethicone Chewable 80 MG TAB PO PRN (19:16)
[2017-11-22] MEDS ORDERED: Lanolin Ointment 7 GM TUBE TOP PRN (19:16)
[2017-11-22] MEDS ORDERED: Ondansetron HCl/PF 4 MG/2 ML Vial IVP PRN (19:16)
[2017-11-22] MEDS ORDERED: Sodium Chloride 0.9% 10 ML ONE (22:10)
[2017-11-22] MEDS: Docusate Calcium (SURFAK) 240 MG CAP PO SCH (22:14)
[2017-11-22] MEDS: HYDROcodone/Acetaminophen 5/325 mg Tablet PO PRN (22:22)
[2017-11-23 00:15] LABS: Syphilis Antibody REACTIVE (Nonreactive)
[2017-11-23] MEDS: Ferrous Sulfate 325 MG TAB PO SCH ×3 (03:48→21:04)
[2017-11-23] MEDS: HYDROcodone/Acetaminophen 5/325 mg Tablet PO PRN ×4 (04:49→21:02)
--- NOTE | 2017-11-23 08:30 | PDOC.OBPPN ---
FMR OB PN: Subj - Interval History Hospital Day: 4 Day: 2 Chief Complaint: none Interval History: Feeling well. Jordan PO, walking, passing gas, urinating w/o issue FMR OB PN: Obj - Maternal Vital signs: BP: 142/75 HR: 63 RR: 20 Tmax: 98.2 - Urine output I&O: 11/22/17 11/23/17 11/24/17 06:59 06:59 06:59 Intake Total 250 1500 Output Total 300 1800 Balance -50 -300 - Lochia Lochia: minimal, no pad changes overnight - Pain Management Pain scale: 5 Intervention: oral medication FMR OB PN: Exam - Physical Exam General: NAD, awake, alert and oriented HEENT: conjunctiva clear Neck: supple Heart: RRR, normal S1/S2 General: CTAB, no respiratory distress, good air movement Abdomen: soft, fundus(cm) (at umbilicus), other (appropriately tender to palpation) Skin: no rash, good tugor, capillary refill <2 seconds : incision healing well Psychiatric: good judgement and insight, normal mood and affect FMR OB PN: Data - Labs Lab results: Laboratory Results - last 24 hr 11/20/17 16:57 Syphilis IgG/IgM Ab REACTIVE H RPR Titer 1:4 H FMR OB PN: A/P - Problem List (1) Pre-eclampsia superimposed on chronic hypertension Current Visit: Yes Status: Acute Code(s): O11.9 - PRE-EXISTING HYPERTENSION WITH PRE-ECLAMPSIA, UNSP TRIMESTER Comment: with severe features (2) Chronic hypertension affecting Current Visit: No Status: Acute Code(s): O10.919 - UNSP PRE-EXISTING HTN COMP , UNSP TRIMESTER (3) Grand multiparity Current Visit: No Status: Acute Code(s): Z64.1 - PROBLEMS RELATED TO MULTIPARITY (4) History of delivery Current Visit: No Status: Acute Code(s): Z98.891 - HISTORY OF UTERINE SCAR FROM PREVIOUS SURGERY Disposition: 37 yo G10 now P4429 s/p repeat LTCS c/b extensive adhesions and L lateral extension and pre-elampsia with severe features 1. s/p repeat LTCS @ 31.4w by 11.6w gabrielle (POD #2) - Appreciate Dr. Zivney and OB hospitalist service assistance - c/b bladder adhesions to anterior uterine wall - no bladder injury identified at time of operation confirmed by methylene blue infusion - Dr. Martin consulted intraoperatively to assist with bladder dissection and repair completed successfully - post-op course complicated by elevated BP and hypothermia, all resolved at this time - pain controlled with [place] PRN - H&H post-op 2. Superimposed pre-eclampsia on cHTN - s/p Mg for 24h (D/C 11/23) - PO labetalol and Procardia scheduled - PRN hydralazine 10mg q15 min for BP > 160/100 - UOP stable and adequate 3. H/o syphilis - positive syphilis antibody, RPR titer 1:4, stable on repeat - s/p tx in 2010 per patient - FTA-ABS pending - NICU notified 4. Grand multiparity - desires IUD (Paragard) 5. Advanced maternal age - No quad screen this 6. Scant/late to care - 1st visit at [facility] on 11/20/17, 2 hospitalizations at [facility] prior to that and eval at [facility] in [facility] early in - Labs reviewed: proteinuria and RPR pertinent positives as well as GBS unknown 7. Proteinuria - 24hour urine collection disrupted by C/S and requirement for methylene blue - value 308 on 11/11 - Pr/Cr 0.49 8. H/o twin delivery Continue to monitor BP. Possible d/c tomorrow on POD #3 Attending Addendum - Attending Addendum Date/Time: 11/23/17 1026 I personally evaluated the patient and discussed the management residents. BP well controlled on procardia & labetalol. Still some residual swelling --> improved Wound healing well - no erythema or drainage - eleno intact. Off mag X 24 hours. Anticipate D/C tomorrow if stable, will continue both BP meds.
[2017-11-23] MEDS: Docusate Calcium (SURFAK) 240 MG CAP PO SCH ×2 (09:20→21:04)
[2017-11-23] MEDS: NIFEdipine XL 60 MG TAB PO SCH (09:20)
[2017-11-23] MEDS: Labetalol 100 MG TAB PO SCH ×2 (09:23→21:04)
[2017-11-23] MEDS: Prenatal Vitamin 1 TAB PO SCH (09:24)
[2017-11-23] MEDS ORDERED: Polyethylene Glycol 3350 17 GM Packet PO SCH ×2 (11:15→11:30)
[2017-11-24] MEDS: HYDROcodone/Acetaminophen 5/325 mg Tablet PO PRN ×2 (02:36→09:20)
--- NOTE | 2017-11-24 08:50 | PDOC.PP ---
Post Progress Note Post Day #: 3 Subjective: Pain adequately controlled and incision clean and dry. She notes some new pain over her mons that feels like a swollen "boil" PO intake tolerated: yes Flatus: yes Ambulation: yes Vital Signs (12 hours) Temp Pulse Resp BP BP 11/24/17 00:30 98.5 F 75 18 126/66 11/23/17 21:04 89 128/67 Weight Weight 101.151 kg - Physical Examination General: NAD Cardiovascular: no m/r/g, RRR Respiratory: clear to auscultation bilaterally Abdominal: + bowel sounds, lochia (minimal), no distention, appropriately TTP Fundus firm & at: just above umbilicus Deviation from normal: no edema BL, no calf TTP Skin: CS incision dry & intact (no drainage, eleno in place), no rash Neurological: no gross focal deficits Psychiatric: A&Ox3, normal affect Result Diagrams: 11/22/17 05:21 11/21/17 15:54 Additional Labs: Post Labs Blood Type A POSITIVE 11/20/17 16:57 (1) Pre-eclampsia superimposed on chronic hypertension Code(s): O11.9 - PRE-EXISTING HYPERTENSION WITH PRE-ECLAMPSIA, UNSP TRIMESTER Status: Acute Comment: with severe features (2) Chronic hypertension affecting Code(s): O10.919 - UNSP PRE-EXISTING HTN COMP , UNSP TRIMESTER Status : Acute (3) Grand multiparity Code(s): Z64.1 - PROBLEMS RELATED TO MULTIPARITY Status: Acute (4) History of delivery Code(s): Z98.891 - HISTORY OF UTERINE SCAR FROM PREVIOUS SURGERY Status: Acute - Assessment/Plan 37 yo G10 now P4429 s/p repeat LTCS c/b extensive adhesions and L lateral extension and pre-elampsia with severe features 1. s/p repeat LTCS @ 31.4w by 11.6w katho (POD #3) - Appreciate Dr. Dill and OB hospitalist service assistance - c/b bladder adhesions to anterior uterine wall - no bladder injury identified at time of operation confirmed by methylene blue infusion - Dr. Martin consulted intraoperatively to assist with bladder dissection and repair completed successfully - post-op course complicated by elevated BP and hypothermia, all resolved at this time - pain controlled with Silex PRN - H&H post-op 2. Superimposed pre-eclampsia on cHTN - s/p Mg for 24h - PO labetalol and Procardia scheduled, will hold procardia this morning and see if adequately controlled on labetalol - PRN hydralazine 10mg q15 min for BP > 160/100 - UOP stable and adequate 3. H/o syphilis - positive syphilis antibody, RPR titer 1:4, stable on repeat - s/p tx in 2010 per patient - FTA-ABS positive - NICU notified 4. Grand multiparity - desires IUD (Paragard) 5. Advanced maternal age - No quad screen this 6. Scant/late to care - 1st visit at [facility] on 11/20/17, 2 hospitalizations at [facility] prior to that and eval at [facility] in [facility] early in - Labs reviewed: proteinuria and RPR pertinent positives as well as GBS unknown 7. Proteinuria - 24hour urine collection disrupted by C/S and requirement for methylene blue - value 308 on 11/11 - Pr/Cr 0.49 8. H/o twin delivery Continue to monitor BP. Possible d/c tomorrow on POD #3
[2017-11-24] MEDS ORDERED: Polyethylene Glycol 3350 17 GM Packet PO SCH (09:00)
[2017-11-24] MEDS: Labetalol 100 MG TAB PO SCH (09:17)
[2017-11-24] MEDS: NIFEdipine XL 60 MG TAB PO SCH (09:18)
[2017-11-24] MEDS: Docusate Calcium (SURFAK) 240 MG CAP PO SCH (09:18)
[2017-11-24] MEDS: Ferrous Sulfate 325 MG TAB PO SCH (09:18)
[2017-11-24] MEDS: Prenatal Vitamin 1 TAB PO SCH (09:18)
[2017-11-24 11:33] VITALS: TEMP 98
[2017-11-24 13:30] VITALS: BP 118/56
== END 2017-11-24 15:04 | disposition home or self-care (01) | DRG 766 ==
LOC: L&D/OP 15:41 → L&D 23:54 → 3SW 11-22 16:32
PROVIDERS: ADMIT Student in an Organized Health Care Education/Training Program; ATTEND Student in an Organized Health Care Education/Training Program
PROC: 10D00Z1 Extraction of Products of Conception, Low, Open Approach (ICD-10-PCS; principal; 2017-11-21)
PROC: 0TNB0ZZ Release Bladder, Open Approach (ICD-10-PCS; 2017-11-21)
DX: O11.4 Pre-existing hypertension with pre-eclampsia, complicating childbirth (principal); O34.211 Maternal care for low transverse scar from previous cesarean delivery; O99.89 Other specified diseases and conditions complicating pregnancy, childbirth and the puerperium; N32.89 Other specified disorders of bladder; O10.92 Unspecified pre-existing hypertension complicating childbirth; O90.89 Other complications of the puerperium, not elsewhere classified; R68.0 Hypothermia, not associated with low environmental temperature; O72.1 Other immediate postpartum hemorrhage; Z3A.31 31 weeks gestation of pregnancy; Z37.0 Single live birth
CPT/HCPCS: 36415; 51702; 76700; 76815; 76819; 80053; 80306; 81003; 82570; 82805; 83615; 83735; 84550; 85007; 85025; 85027; 85610; 85730; 86593; 86780; 86850; 86900; 86901; 88307; 90715; 99285; A4216; J0171; J0360; J1100; J1885; J2001; J2250; J2274; J2405; J2550; J2590; J2765; J3475; J3490; Q9968

== ENCOUNTER 2018-08-11 11:07 | Emergency (ER) | payer MEDICAID, SELFPAY ==
[2018-08-11 11:35] LABS: Bilirubin Negative (Negative); Blood, Urine Negative (Negative); Clarity CLEAR (Clear); Glucose, Urine (Dipstick) Negative (Negative); Leukocyte Negative (Negative); Nitrite Negative (Negative); Protein, Urine (Dipstick) Negative (Neg-Trace); pH, Urine 6.5 (5.0-9.0)
[2018-08-11 11:36] LABS: Pregnancy Test - Urine (BHCG) Negative (Negative)
[2018-08-11 11:37] LABS: Pregu Control Background? CLEAR/WHITE (CLR/WHITE); Pregu Control Bar Appear? YES (CONTROL BAR)
[2018-08-11] MEDS ORDERED: Ketorolac Tromethamine 60 MG/2 ML VIAL ONE (12:03)
== END 2018-08-11 12:20 | disposition home or self-care (01) ==
LOC: ERS 11:07
DX: M54.5 Low back pain (principal); I10 Essential (primary) hypertension; X50.1XXA Overexertion from prolonged static or awkward postures, initial encounter
CPT/HCPCS: 81003; 81025; 96372; J1885

== ENCOUNTER 2019-02-16 13:50 | Emergency (ER) | payer SELFPAY ==
[2019-02-16 14:31] LABS: #Basophils 0.1 thou/uL (0.0-0.2); #Eosinphils 0.3 thou/uL (0.0-0.7); #Lymphocytes 3.4 thou/uL (1.20-3.40); #Monocytes 0.7 thou/uL (0.11-0.59); #Neutrophils 5.5 thou/uL (1.40-6.50); %Basophils 0.9 % (0.0-1.0); %Eosinophils 2.8 % (0.0-10.0); %Monocytes 6.6 % (0.0-10.0); %Neutrophils 55.7 % (42.0-75.0); Mean Corpuscular HGB CONC 33.3 g/dL (32.0-36.0); Mean Corpuscular Volume 84.3 fL (78.0-98.0); Mean Platelet Volume 6.5 fL (7.4-10.4); Platelet Count 383 thou/uL (130-400); RBC Distribution Width 13.8 % (11.5-14.5); Red Blood Cell (RBC) Count 3.92 mill/uL (4.20-5.40); White Blood Cell (WBC) Count 9.9 thou/uL (4.8-10.8)
[2019-02-16 14:44] LABS: Prothrombin Time 13.6 SEC (12.0-14.7)
[2019-02-16 14:45] LABS: PTT 32.1 SEC (22.9-36.1)
[2019-02-16 14:50] LABS: ALT (SGPT) 67 U/L (8-55); AST (SGOT) 49 U/L (5-34); Albumin 4.2 g/dL (3.5-5.0); Alkaline Phosphatase 102 U/L (40-110); Anion Gap 11 mmol/L (10-20); BUN (Urea Nitrogen) 12 mg/dL (7.0-18.7); Bilirubin, Total 0.6 mg/dL (0.2-1.2); Calc. Creatinine Clearance 0 mL/min (70-130); Calcium 9.2 mg/dL (7.8-10.44); Carbon Dioxide 25 mmol/L (22-29); Chloride 106 mmol/L (98-107); Estimated GFR-MDRD Greater than 90; Globulin 3.4 g/dL (2.4-3.5); Glucose 122 mg/dL (70-105); Protein, Total 7.6 g/dL (6.0-8.3); Sodium 138 mmol/L (136-145)
[2019-02-16 15:08] LABS: Pregnancy Test - Urine (BHCG) Negative (Negative); Pregu Control Background? CLEAR/WHITE (CLR/WHITE); Pregu Control Bar Appear? YES (CONTROL BAR)
[2019-02-16 15:09] LABS: Specific Gravity 1.026 (1.002-1.036)
[2019-02-16 15:11] LABS: Bacteria/HPF None Seen HPF (None Seen); Bilirubin Negative (Negative); Blood, Urine 3+ (Negative); Clarity Turbid (Clear); Glucose, Urine (Dipstick) Normal (Negative); Leukocyte 25 Leu/uL (Negative); Nitrite Negative (Negative); Protein, Urine (Dipstick) 30 mg/dL (Neg-Trace); RBC/HPF Greater than 50 HPF (0-3); Squamous Epithelial 0-3 HPF (0-3)
[2019-02-16] MEDS ORDERED: Estrogens, Conjugated 25 mg Vial IM SCH (16:00)
[2019-02-16] MEDS ORDERED: Sterile Water 10 ML ONE (16:15)
== END 2019-02-16 16:46 | disposition home or self-care (01) ==
LOC: ERS 13:50
DX: N93.9 Abnormal uterine and vaginal bleeding, unspecified (principal)
CPT/HCPCS: 36415; 80053; 81003; 81015; 81025; 85025; 85610; 85730; 86850; 86900; 86901; 96372; 99284; J1410

== ENCOUNTER 2019-06-02 15:14 | Emergency (ER) | payer SELFPAY | END 2019-06-02 16:05 | disposition home or self-care (01) | LOC: ERS 15:14 | DX: H60.92 Unspecified otitis externa, left ear (principal); I10 Essential (primary) hypertension | CPT/HCPCS: 99282 ==

== ENCOUNTER 2020-03-02 08:52 | Emergency (ER) | payer SELFPAY ==
[2020-03-02] MEDS ORDERED: Ciprofloxacin HCL/Dexameth Otic Drops 7.5 ml Bottle ONE (09:32)
[2020-03-02] MEDS ORDERED: HYDROcodone/Acetaminophen 10/325 mg Tablet ONE (09:48)
== END 2020-03-02 10:10 | disposition home or self-care (01) ==
LOC: ERS 08:52
DX: H60.92 Unspecified otitis externa, left ear (principal); I10 Essential (primary) hypertension; F17.210 Nicotine dependence, cigarettes, uncomplicated
CPT/HCPCS: 99282

== ENCOUNTER 2020-03-05 09:25 | Emergency (ER) | payer SELFPAY | END 2020-03-05 10:10 | disposition home or self-care (01) | LOC: ERS 09:25 | DX: H60.502 Unspecified acute noninfective otitis externa, left ear (principal); I10 Essential (primary) hypertension; F17.210 Nicotine dependence, cigarettes, uncomplicated | CPT/HCPCS: 99282 ==